=== PATIENT | male | born 1960 | race Caucasian/White ===

== ENCOUNTER 2017-02-23 08:49 | Outpatient (CLI) | payer OTHER | END 2017-02-23 08:50 | disposition critical access hospital (66) | LOC: EMS 08:49 | PROVIDERS: ATTEND Surgery | DX: R41.82 Altered mental status, unspecified (principal); R53.1 Weakness; W01.0XXA Fall on same level from slipping, tripping and stumbling without subsequent striking against object, initial encounter; Y92.039 Unspecified place in apartment as the place of occurrence of the external cause | CPT/HCPCS: A0425; A0427 ==

== ENCOUNTER 2017-02-23 09:05 | Emergency (ER) | payer OTHER ==
--- NOTE | 2017-02-23 09:54 | CT Preliminary Report ---
Exam: CT Head W/O Stroke Protocol IMPRESSION: 1. No bleeding or mass effect, or shift. 2. Prominent left sided ventricles, sulci and cisterns, probably age-related. No focal areas of encep halomalacia. [facility] The call report notification system was initiated by Dr. Kavin Phillips at 09:45 hrs on 02/23/17. The above findings were discussed with Dr. Carrington Card by Dr. Kavin Phillips at 09:52 hrs on 02/23/17. SITE ID: [id number]
[2017-02-23] MEDS ORDERED: SODIUM CHLORIDE 0.9% 1,000 ML IV ONE (09:57)
[2017-02-23] MEDS ORDERED: diltiaZEM INJ 5 MG/ML VIAL IVP STA (09:57)
[2017-02-23 10:02] LABS: INR 1.1 (0.8-1.2); PT - PROTHROMBIN TIME 12.8 secs (9.9-12.6)
--- NOTE | 2017-02-23 10:03 | CT Preliminary Report ---
Exam: CT Cervical Spine W/O IMPRESSION: 1. No acute fracture or dislocation. 2. Multilevel degenerative changes as described. 3. Mild multilevel grade 1 spondylolisthesis, likely degenerative. [facility] SITE ID: [id number]
[2017-02-23] MEDS ORDERED: diltiaZEM INJ 5 MG/ML VIAL ONE (10:06)
--- NOTE | 2017-02-23 10:06 | CT Report ---
EXAM: CT CERVICAL SPINE WITHOUT CONTRAST DATE: 02/23/2017 09:45 AM HISTORY: Syncope. Injury from fall. COMPARISONS: None. TECHNIQUE: Thin-section axial images were acquired of the cervical spine without contrast. Post-proce ssing: Coronal and sagittal reformats. Other: None. In accordance with CT protocol optimization, one or more of the following dose reduction techniques w ere utilized for this exam: automated exposure control, adjustment of mA and/or KV based on patient s ize, or use of iterative reconstructive technique. FINDINGS: Alignment: Mild levoscoliosis. Mild grade 1 anterolisthesis C2 on C3, C4 and C5, and minor grade 1 re trolisthesis C6 on C7. Bones: No acute fracture or bone destructive process. Intact odontoid process and posterior elements. Interspace Levels/Facets: Multilevel disk height loss with prominent anterior osteophytes, most sever e and advanced at C6-C7, less so C4-C5 and C5-C6. Multilevel moderate facet arthrosis, especially basia ateral C2-C3 and C3-C4. Bilateral uncinate hypertrophy with resultant foraminal narrowing, moderate t o severe at C6-C7, left greater than right. Other: No paravertebral soft tissue swelling. No apical pneumothorax. Biapical pleural parenchymal sc arring. IMPRESSION: 1. No acute fracture or dislocation. 2. Multilevel degenerative changes as described. 3. Mild multilevel grade 1 spondylolisthesis, likely degenerative. [facility] Referring Provider Line: [phone] SITE ID: [id number]
--- NOTE | 2017-02-23 10:06 | CT Report ---
EXAM: CT HEAD EXAM DATE: 02/23/2017 09:39 AM. CLINICAL HISTORY: Syncope; fall. Stroke protocol. COMPARISON: None. TECHNIQUE: Multiaxial CT images were obtained from the foramen magnum to the vertex. IV contrast: Non e. Reformats: Coronal. In accordance with CT protocol optimization, one or more of the following dose reduction techniques w ere utilized for this exam: automated exposure control, adjustment of mA and/or KV based on patient s ize, or use of iterative reconstructive technique. FINDINGS: Parenchyma: No intraparenchymal hemorrhage. No evidence of mass, midline shift, or CT findings of acu te infarction. Christensen-white differentiation is distinct. Extraaxial Spaces: Prominent ventricles, sulci and cisterns, more on the left. No encephalomalacia. Ventricles: Left ventricle and right ventricle are normal size, slightly larger on the left. Sinuses: Imaged paranasal sinuses, orbits, and mastoids show no significant abnormality. Bones: No evidence of fracture or calvarial defect. Other: Multifocal chronic microangiopathic white matter changes are evident. IMPRESSION: 1. No bleeding or mass effect, no shift. 2. Prominent left-sided ventricles, sulci and cisterns, probably age-related. No focal areas of encep halomalacia. [facility] The call report notification system was initiated by Dr. Kavin Phillips at 09:45 hrs on 02/23/2017. The above findings were discussed with Dr. Carrington Card by Dr. Kavin Phillips at 09:52 hrs on 02/23/2017 . Referring Provider Line: [phone] SITE ID: [id number]
[2017-02-23 10:09] LABS: PARTIAL THROMBOPLASTIN TIME 24.2 secs (24.9-33.3)
[2017-02-23 10:18] LABS: BASOPHILS % (AUTO) 1.2 %; EOSINOPHILS % (AUTO) 0.1 %; HCT - HEMATOCRIT 20.4 % (42.0-52.0); LYMPHOCYTES % (AUTO) 6.3 %; MEAN CORPUSCULAR HEMOGLOBIN 14.9 pg (27.0-31.0); MEAN PLATELET VOLUME 8.4 fL (7.4-11.4); MONOCYTES % (AUTO) 5.5 %; NEUTROPHILS % (AUTO) 86.9 %; RED CELL DISTRIBUTION WIDTH 22.2 % (12.0-15.0); UNCORRECTED WHITE BLOOD COUNT 31.5 x10^3/uL; WHITE BLOOD COUNT 31.5 x10^3/uL (4.8-10.8)
[2017-02-23 10:20] LABS: HGB - HEMOGLOBIN 5.5 g/dL (14.0-18.0)
[2017-02-23 10:22] LABS: BAND NEUTROPHILS % (MANUAL) 0 %
[2017-02-23 10:27] LABS: BASOPHILS % (MANUAL) 1 %; LYMPHOCYTES % (MANUAL) 6 %; NEUTROPHILS % (MANUAL) 85 %; TOTAL CELLS COUNTED 100
[2017-02-23 10:28] LABS: NP AUTO DIFFERENTIAL? YES; NP MAN DIFFERENTIAL? NO; PLATELET ESTIMATE, MANUAL INCREASED (>450,000) (NORMAL); PLATELET MORPHOLOGY NORMAL APPEARANCE (NORMAL)
[2017-02-23 10:30] LABS: SLIDE SENT FOR PATH REVIEW? Indicated
[2017-02-23 10:31] LABS: CBC SPECIMEN NUMBER 757578; PATHOLOGIST REVIEW ORDER PATH SLIDE REVIEW
[2017-02-23 10:33] LABS: ALBUMIN/GLOBULIN RATIO 0.5 (1.0-2.2); BILIRUBIN,TOTAL 0.5 mg/dL (0.2-1.0); BUN - BLOOD UREA NITROGEN 13 mg/dL (6-20); CALCIUM 9.4 mg/dL (8.5-10.3); CARBON DIOXIDE - CO2 16 mmol/L (21-32); CHLORIDE 100 mmol/L (101-111); CREATININE 1.2 mg/dL (0.6-1.2); GFR - MDRD 62 (>89); GLUCOSE 232 mg/dL (70-100); LIPASE 27 U/L (22-51); POTASSIUM 4.4 mmol/L (3.5-5.0); SODIUM 138 mmol/L (135-145); TOTAL PROTEIN 8.2 g/dL (6.7-8.2)
[2017-02-23] MEDS ORDERED: MORPHINE 2 MG/ML SYRINGE IVP STA (10:38)
--- NOTE | 2017-02-23 10:56 | XRAY Preliminary Report ---
Exam: XR Chest 1 View IMPRESSION: 1. Technically limited exam due to positioning. 2. Nonspecific irregular opacities lower left lung and possible left basilar bulla. Apparent left inf rahilar retrocardiac opacity. Recommend radiographic follow-up versus chest CT. 2. Normal heart size without failure. [facility] SITE ID: [id number]
--- NOTE | 2017-02-23 10:59 | XRAY Report ---
EXAM: CHEST RADIOGRAPHY EXAM DATE: 02/23/2017 10:40 AM. CLINICAL HISTORY: Syncope, tachycardia. COMPARISON: 07/29/2006. TECHNIQUE: 1 view (2 images). FINDINGS: Lungs/Pleura: Apparent opacification medial upper left retrocardiac area below the hilum. Irregular o pacities lower left lung potentially adjacent to a bulla. Mild blunting left costophrenic sulcus. Pos sible small left apical calcifications. No pneumothorax. Clear right lung. Mediastinum: Rotated. No cardiomegaly. Other: No acute fracture identified. Healed right posterolateral 10th rib fracture deformity. IMPRESSION: 1. Technically limited exam due to positioning. 2. Nonspecific irregular opacities lower left lung and possible left basilar bulla. Apparent left inf rahilar retrocardiac opacity. Recommend radiographic follow-up versus chest CT. 2. Normal heart size without failure. [facility] Referring Provider Line: [phone] SITE ID: [id number]
--- NOTE | 2017-02-23 11:07 | ED Physician Documentation ---
History of Present Illness - Stated complaint Stated Complaint: AMS, FALL - Chief complaint Chief Complaint: Neuro - History obtained from History obtained from: Patient, EMS - Treatment prior to arrival Treatment prior to arrival: NS IV. - Additonal information Additional information: The patient is a 57-year-old alcoholic male who arrives via ambulance after falling at home this morning. He lives by himself, and a neighbor heard him calling for help. He initially did not converse with medics, but is conversant upon arrival to the emergency department. He reports dark bloody stools for the past several days. Medics state there was emesis at the site, although the patient denies vomiting. He denies abdominal pain, fever, or shortness of breath. He denies history of similar symptoms in the past. He denies any abdominal surgery. He reports history of skin cancer, for which he has undergone radiation therapy on the left side of his neck. His neighbor states that he has been drinking more than usual lately and took sleeping medication last night in addition to alcohol. He has not been leaving his home, and his neighbor has been going to the store for him. Review of Systems Constitutional: reports: Fatigue. denies: Fever Ears: denies: Tinnitus/ringing Nose: denies: Congestion Throat: denies: Sore throat Cardiac: denies: Chest pain / pressure Respiratory: denies: Dyspnea, Cough GI: reports: Nausea, Bloody / black stool. denies: Abdominal Pain : denies: Dysuria Musculoskeletal: reports: Extremity pain (left elbow pain). denies: Extremity swelling Neurologic: reports: Generalized weakness. denies: Focal weakness, Numbness, Seizure, Headache PD PAST MEDICAL HISTORY - Past Medical History Cardiovascular: Hypertension Respiratory: COPD Endocrine/Autoimmune: None Derm: Other (Skin Cancer, s/p radiation) - Present Medications Home Medications: Ambulatory Orders Medication Instructions Recorded Confirmed No Known Home Medications [No 02/23/17 02/23/17 Known Home Medications] - Allergies Allergies/Adverse Reactions: Allergies Allergy/AdvReac Type Severity Reaction Status Date / Time No Known Drug Allergies Allergy Verified 02/23/17 09:13 - Living Situation Living Situation: reports: Alone - Social History Does the pt smoke?: Yes Smoking Status: Current every day smoker Does the pt drink ETOH?: Yes ETOH Use: Beer PD ED PE NORMAL - Vitals Vital signs reviewed: Yes (Tachycardic) - General General: Other (Emaciated, and drowsy.) - HEENT HEENT: PERRL, EOMI, Other (Dry buccal mucosa; small ecchymosis mid forehead.) - Neck Neck: Supple, no meningeal sign, No adenopathy, No JVD, Other (Large open sore left side of neck.) - Cardiac Cardiac: Other (Rapid rate, regular rhythm.) - Respiratory Respiratory: Clear bilaterally - Abdomen Abdomen: Soft, Non tender - Back Back: No spinal TTP - Derm Derm: No rash - Extremities Extremities: No edema, No calf tenderness / cord, Other (No tenderness to palpation of left elbow.) - Neuro Neuro: Other (Drowsy, but responds to questions. Moves all extremities, without focal motor deficit.) Results - Vitals Vitals: Vital Signs - 24 hr 02/23/17 02/23/17 02/23/17 09:07 10:45 11:00 Temperature Heart Rate 158 H 148 H 152 H Respiratory 26 H 25 H 22 Rate Blood Pressure 198/110 H O2 Saturation 100 100 02/23/17 02/23/17 02/23/17 11:15 11:30 11:45 Temperature Heart Rate 120 H 134 H 122 H Respiratory 20 20 21 Rate Blood Pressure 188/98 H 185/102 H 167/90 H O2 Saturation 100 100 100 02/23/17 02/23/17 02/23/17 11:52 12:00 12:15 Temperature 36.9 C 37.3 C Heart Rate 133 H 123 H 128 H Respiratory 22 21 14 Rate Blood Pressure 167/90 H 178/92 H 197/97 H O2 Saturation 100 02/23/17 12:45 Temperature Heart Rate 113 H Respiratory 19 Rate Blood Pressure 182/107 H O2 Saturation 100 Oxygen O2 Source Nasal cannula - EKG (time done) 09:46 Rate: Rate (enter#) (189) Rhythm: Sinus tachycardia [place]: Normal QRS: LVH Ischemia: ST depression (Probably rate related.) Computer interpretation: Agree with computer - Labs Labs: Laboratory Tests 02/23/17 02/23/17 02/23/17 09:08 09:15 09:53 WBC RBC Hgb Hct MCV MCH MCHC RDW Plt Count MPV Neut # Lymph # [place] # Eos # Baso # Absolute Nucleated RBC Total Counted Band Neuts % (Manual) Nucleated RBC % Neutrophils # (Manual) Lymphocytes # (Manual) Monocytes # (Manual) Basophils # (Manual) Differential Comment Platelet Estimate Platelet Morphology RBC Morph Micro Appear PT 12.8 H INR 1.1 APTT 24.2 L Sodium Potassium Chloride Carbon Dioxide Anion Gap BUN Creatinine Estimated GFR (MDRD) Glucose POC Whole Bld Glucose 255 H Lactic Acid Calcium Total Bilirubin AST ALT Alkaline Phosphatase Troponin I Total Protein Albumin Globulin Albumin/Globulin Ratio Lipase Urine Color Urine Clarity Urine pH Ur Specific [place] Urine Protein Urine Glucose (UA) Urine Ketones Urine Occult Blood Urine Nitrite Urine Bilirubin Urine Urobilinogen Ur Leukocyte Esterase Ur Microscopic Review Urine Culture Comments Urine Opiates Screen Ur Oxycodone Screen Urine Methadone Screen Ur Propoxyphene Screen Ur Barbiturates Screen Ur Tricyclics Screen Ur Phencyclidine Scrn Ur Amphetamine Screen U Methamphetamines Scrn U Benzodiazepines Scrn Urine Cocaine Screen U Cannabinoids Screen Ethyl Alcohol Slides for Path Review Blood Type Blood Type Recheck O POSITIVE Antibody Screen Crossmatch IS Only 02/23/17 02/23/17 02/23/17 09:53 09:54 09:54 WBC 31.5 H RBC 3.70 L Hgb 5.5 L* Hct 20.4 L MCV 55.0 L MCH 14.9 L MCHC 27.0 L RDW 22.2 H Plt Count 755 H MPV 8.4 Neut # Not Reportable Lymph # Not Reportable [place] # Not Reportable Eos # Not Reportable Baso # Not Reportable Absolute Nucleated RBC Not Reportable Total Counted 100 Band Neuts % (Manual) 0 Nucleated RBC % Not Reportable Neutrophils # (Manual) 26.8 H Lymphocytes # (Manual) 1.9 Monocytes # (Manual) 2.5 H Basophils # (Manual) 0.3 H Differential Comment MANUAL DIFFERENTIAL Platelet Estimate INCREASED (>450,000) Platelet Morphology NORMAL APPEARANCE RBC Morph Micro Appear 3+ MICROCYTOSIS PT INR APTT Sodium 138 Potassium 4.4 Chloride 100 L Carbon Dioxide 16 L Anion Gap 22.0 H BUN 13 Creatinine 1.2 Estimated GFR (MDRD) 62 L Glucose 232 H POC Whole Bld Glucose Lactic Acid Calcium 9.4 Total Bilirubin 0.5 AST 29 ALT 11 Alkaline Phosphatase 97 Troponin I < 0.04 Total Protein 8.2 Albumin 2.8 L Globulin 5.4 H Albumin/Globulin Ratio 0.5 L Lipase 27 Urine Color Urine Clarity Urine pH Ur Specific [place] Urine Protein Urine Glucose (UA) Urine Ketones Urine Occult Blood Urine Nitrite Urine Bilirubin Urine Urobilinogen Ur Leukocyte Esterase Ur Microscopic Review Urine Culture Comments Urine Opiates Screen Ur Oxycodone Screen Urine Methadone Screen Ur Propoxyphene Screen Ur Barbiturates Screen Ur Tricyclics Screen Ur Phencyclidine Scrn Ur Amphetamine Screen U Methamphetamines Scrn U Benzodiazepines Scrn Urine Cocaine Screen U Cannabinoids Screen Ethyl Alcohol < 5.0 Slides for Path Review Indicated Blood Type Blood Type Recheck Antibody Screen Crossmatch IS Only 02/23/17 02/23/17 02/23/17 10:08 10:08 11:33 WBC RBC Hgb Hct MCV MCH MCHC RDW Plt Count MPV Neut # Lymph # [place] # Eos # Baso # Absolute Nucleated RBC Total Counted Band Neuts % (Manual) Nucleated RBC % Neutrophils # (Manual) Lymphocytes # (Manual) Monocytes # (Manual) Basophils # (Manual) Differential Comment Platelet Estimate Platelet Morphology RBC Morph Micro Appear PT INR APTT Sodium Potassium Chloride Carbon Dioxide Anion Gap BUN Creatinine Estimated GFR (MDRD) Glucose POC Whole Bld Glucose Lactic Acid 8.4 H* Calcium Total Bilirubin AST ALT Alkaline Phosphatase Troponin I Total Protein Albumin Globulin Albumin/Globulin Ratio Lipase Urine Color YELLOW Urine Clarity CLEAR Urine pH 5.5 Ur Specific [place] >=1.030 H Urine Protein NEGATIVE Urine Glucose (UA) NEGATIVE Urine Ketones NEGATIVE Urine Occult Blood NEGATIVE Urine Nitrite NEGATIVE Urine Bilirubin NEGATIVE Urine Urobilinogen 0.2 (NORMAL) Ur Leukocyte Esterase NEGATIVE Ur Microscopic Review NOT INDICATED Urine Culture Comments NOT INDICATED Urine Opiates Screen NEGATIVE Ur Oxycodone Screen NEGATIVE Urine Methadone Screen NEGATIVE Ur Propoxyphene Screen NEGATIVE Ur Barbiturates Screen NEGATIVE Ur Tricyclics Screen NEGATIVE Ur Phencyclidine Scrn NEGATIVE Ur Amphetamine Screen NEGATIVE U Methamphetamines Scrn NEGATIVE U Benzodiazepines Scrn NEGATIVE Urine Cocaine Screen NEGATIVE U Cannabinoids Screen NEGATIVE Ethyl Alcohol Slides for Path Review Blood Type O POSITIVE Blood Type Recheck Antibody Screen NEGATIVE Crossmatch IS Only See Detail - Rads (name of study) Head CT w/o Radiology: Prelim report reviewed, EMP read contemporaneously, See rad report ( No bleeding or mass-effect, or shift. Prominent left-sided ventricles, sulci and cisterns, probably age-related. No focal areas of encephalomalacia.) Cervical spine CT Radiology: Prelim report reviewed, EMP read contemporaneously, See rad report ( 1. No acute fracture or dislocation. 2. Multilevel degenerative changes as described. 3. Mild multilevel grade 1 spondylolisthesis, likely degenerative.) Left elbow Radiology: Prelim report reviewed, EMP read contemporaneously, See rad report ( Normal elbow radiography.) PD MEDICAL DECISION MAKING - ED course Complexity details: reviewed results, re-evaluated patient, considered differential, d/w patient, d/w financial services education consultant ED course: The patient's presentation is significant for gastrointestinal hemorrhage with profound anemia, with apparent syncopal episode this morning. He has had no further GI bleeding while in the emergency department. His hemoglobin is 5.5, and he has metabolic acidosis with a lactate of 8.4. His white count is markedly elevated at 31,500. Head CT without contrast reveals no acute intracranial hemorrhage, and CT of his C-spine reveals no acute bony abnormality. His electrocardiogram reveals sinus tachycardia, without ischemic abnormality, and his troponin level is normal. Treatment in the emergency department included administration of normal saline 2 L IV, morphine 2 mg IV, Ofirmev 1 g IV, and transfusion of 2 units packed red blood cells. Ceftriaxone 1 g and vancomycin 1 g were administered IV after blood cultures were obtained. The patient's tachycardia improved as the infusion progressed. His mental status also improved. I discussed his condition with the hospitalist, Dr. Tong , who recommends transfer to an acute care facility. I discussed his condition with Dr. Avila at [facility], and he will accept the patient in transfer. He is being transferred by ALS ambulance. Transfer forms were completed. - Critical Care Time(min): 60 Time Includes: Direct patient care, Review records, Reassess patient, Document care, Coordinate care Data interpretation: Labs, CXR Procedures excluded from critical care time: EKG Departure - Departure Disposition: 02 Transfer Acute Care Hosp Clinical Impression: Profound anemia, Alcohol abuse, Skin cancer, Hyperglycemia, Metabolic acidosis GI hemorrhage Qualifiers: GI bleed type/associated pathology: unspecified gastrointestinal hemorrhage type Qualified Code(s): K92.2 - Gastrointestinal hemorrhage, unspecified Condition: Serious Discharge Date/Time: 02/23/17 13:12
[2017-02-23] MEDS ORDERED: MORPHINE 2 MG/ML SYRINGE ONE (11:40)
[2017-02-23] MEDS ORDERED: ACETAMINOPHEN 1,000 MG/100 ML 100 ML IV ONE ×2 (11:41→12:29)
[2017-02-23 11:46] LABS: BILIRUBIN,URINE NEGATIVE (NEGATIVE); PH,URINE 5.5 PH (5.0-7.5)
[2017-02-23 11:48] LABS: UA CHARGE (STRIP ONLY) YES; UR CULTURE IF IND NOT INDICATED
--- NOTE | 2017-02-23 12:09 | XRAY Preliminary Report ---
Exam: XR Elbow 3 View LT IMPRESSION: Normal elbow radiography. [facility] SITE ID: [id number]
--- NOTE | 2017-02-23 12:43 | XRAY Report ---
EXAM: LEFT ELBOW RADIOGRAPHY EXAM DATE: 02/23/2017 11:42 AM. CLINICAL HISTORY: Left elbow pain after falling. COMPARISON: None. TECHNIQUE: 3 views. FINDINGS: Bones: Normal. No fractures or bone lesions. Joints: Normal. No effusion. No subluxation. Soft Tissues: Normal. No soft tissue swelling. IMPRESSION: Normal elbow radiography. [facility] Referring Provider Line: [phone] SITE ID: [id number]
[2017-02-23] MEDS ORDERED: cefTRIAXone 1 GM in SODIUM CHLORIDE 0.9% MINIBAG 100 ML IV STA (13:01)
[2017-02-23] MEDS ORDERED: VANCOMYCIN INJ 1 GM in SODIUM CHLORIDE 0.9% 250 ML IV STA (13:02)
[2017-02-23] MEDS ORDERED: VANCOMYCIN 1 GM VIAL ONE (13:08)
[2017-02-23] MEDS ORDERED: cefTRIAXone 1 GM VIAL ONE (13:09)
[2017-02-23 13:45] VITALS: BP 182/107
[2017-02-26 10:35] LABS: PATH REVIEW COMPLETED PATH REVIEW COMPLETE
== END 2017-02-23 13:12 | disposition short-term general hospital (02) ==
LOC: EDUNIT# → ED 09:05
DX: D64.89 Other specified anemias (principal); K92.1 Melena; C44.90 Unspecified malignant neoplasm of skin, unspecified; R73.9 Hyperglycemia, unspecified; E87.2 Acidosis; R41.82 Altered mental status, unspecified; W18.39XA Other fall on same level, initial encounter; Y92.019 Unspecified place in single-family (private) house as the place of occurrence of the external cause; I10 Essential (primary) hypertension; J44.9 Chronic obstructive pulmonary disease, unspecified; D72.829 Elevated white blood cell count, unspecified; R00.0 Tachycardia, unspecified; F17.200 Nicotine dependence, unspecified, uncomplicated
CPT/HCPCS: 36415; 36430; 51702; 70450; 71010; 72125; 73080; 80053; 80306; 80320; 81003; 83605; 83690; 84484; 85025; 85610; 85730; 86850; 86900; 86901; 86920; 93005; 96361; 96365; 96367; 96375; 99285; 99291; J0131; J3370; P9016; 81001; 87086

== ENCOUNTER 2017-02-23 13:13 | Outpatient (CLI) | payer OTHER | END 2017-02-23 13:14 | disposition short-term general hospital (02) | LOC: EMS 13:13 | PROVIDERS: ATTEND Surgery | DX: K92.2 Gastrointestinal hemorrhage, unspecified (principal); D64.9 Anemia, unspecified; R53.1 Weakness | CPT/HCPCS: A0425; A0426 ==

== ENCOUNTER 2017-07-21 08:00 | Outpatient (CLI) | payer OTHER | END 2017-07-21 23:59 | disposition home or self-care (01) | LOC: LAB.R 08:00 | PROVIDERS: ATTEND Internal Medicine | DX: S71.001A Unspecified open wound, right hip, initial encounter (principal) | CPT/HCPCS: 87070; 87205 ==

== ENCOUNTER 2017-08-30 08:00 | Outpatient (CLI) | payer OTHER | END 2017-08-30 08:01 | LOC: LAB.R 08:00 | PROVIDERS: ATTEND Internal Medicine | DX: A49.02 Methicillin resistant Staphylococcus aureus infection, unspecified site (principal) | CPT/HCPCS: 87070; 87205 ==

== ENCOUNTER 2017-09-13 08:00 | Outpatient (CLI) | payer OTHER | END 2017-09-13 08:01 | disposition home or self-care (01) | LOC: LAB.R 08:00 | DX: A49.02 Methicillin resistant Staphylococcus aureus infection, unspecified site (principal) | CPT/HCPCS: 87070; 87205 ==

== ENCOUNTER 2021-06-01 07:45 | Outpatient (CLI) | payer OTHER | END 2021-06-01 07:46 | disposition critical access hospital (66) | LOC: EMS 07:45 | DX: R20.0 Anesthesia of skin (principal); R29.898 Other symptoms and signs involving the musculoskeletal system; R47.81 Slurred speech | CPT/HCPCS: A0425; A0427 ==

== ENCOUNTER 2021-06-01 08:04 | Inpatient (IN) | payer OTHER, MEDICAID ==
--- NOTE | 2021-06-01 08:14 | ED Physician Documentation ---
PD HPI [facility]OCAL [facility]URO - Stated complaint Stated Complaint: L SIDE NUMB/WEAK - History obtained from History obtained from: Patient, EMS - Additional information Additional information: 61 yo male with hx alcohol/tobacco abuse in remission. 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 No hx CVA/TIA. Noted new L side weakness/numbness starting 6pm last night (14 hrs ago). Fell 3 times at home since then without injury. No headache. Review of Systems Ten Systems: 10 systems reviewed and negative Constitutional: reports: Reviewed and negative Throat: reports: Reviewed and negative Cardiac: reports: Reviewed and negative Respiratory: reports: Reviewed and negative PD PAST MEDICAL HISTORY - Past Medical History Cardiovascular: Hypertension Respiratory: COPD Endocrine/Autoimmune: None Derm: Other (Skin Cancer, s/p radiation) - Past Surgical History Past Surgical History: Yes Derm: Skin cancer surgery - Present Medications Home Medications: Ambulatory Orders Medication Instructions Recorded Confirmed No Known Home Medications 02/23/17 02/23/17 - Allergies Allergies/Adverse Reactions: Allergies Allergy/AdvReac Type Severity Reaction Status Date / Time No Known Drug Allergies Allergy Verified 06/01/21 08:18 - Social History Does the pt smoke?: Yes Smoking Status: Current every day smoker Does the pt drink ETOH?: Yes Does the pt have substance abuse?: No - Family History Family history: reports: Non contributory - Immunizations Immunizations are current?: No PD ED PE NORMAL - Vitals Vital signs reviewed: Yes - General General: Alert and oriented X 3, No acute distress - HEENT HEENT: PERRL, EOMI, Other (decreased muscle mass about L neck and shoulder.) - Neck Neck: Supple, no meningeal sign, No bony TTP - Cardiac Cardiac: RRR, No murmur - Respiratory Respiratory: No respiratory distress, Clear bilaterally - Abdomen Abdomen: Normal bowel sounds, Non tender - Back Back: No CVA TTP, No spinal TTP - Extremities Extremities: No deformity, No tenderness to palpate, Normal ROM s pain, No edema, No calf tenderness / cord - Neuro Neuro: Alert and oriented X 3 Eye Opening: Spontaneous Motor: Obeys Commands Verbal: Oriented GCS Score: 15 NIHSS - Time Time: 08:05 - Level of Consciousness Level of consciousness: (0) Alert, Keenly responsive LOC Questions: (0) Answers both Q's correct LOC Commands: (0) Performs both correctly - Gaze Best Gaze: (0) Normal - Visual Visual: (0) No loss - Facial Palsy Facial Palsy: (0) Normal, symmetrical movement - Motor Arms (both separate) Motor Arm (right): (0) No drift Motor Arm (left): (1) Drift - Motor Legs (both separate) Motor Leg (right): (0) No drift Motor Leg (left): (1) Drift - Limb Ataxia Limb Ataxia: (0) Absent - Sensory Sensory: (0) Normal - Best Language Best Language: (0) No aphasia - Dysarthria Dysarthria: (0) Normal - Extinction and Inattention (formally neg Extinction and inattention: (0) No abnormality - Total Score/Results Total Score/Result: 2 Results - Vitals Vitals: Vital Signs - 24 hr 06/01/21 06/01/21 08:15 10:18 Temperature 36.8 C Heart Rate 90 91 Respiratory 20 21 Rate Blood Pressure 194/82 H 186/92 H O2 Saturation 99 100 Oxygen O2 Source Room air - EKG (time done) 1030 Rate: Rate (enter#) (88) Rhythm: NSR [place]: Normal Intervals: Normal VA QRS: LVH Ischemia: Q waves (anterior). No: ST elevation c/w ischemia, ST depression - Labs Labs: Laboratory Tests 06/01/21 06/01/21 06/01/21 08:17 08:17 08:17 WBC 10.9 H RBC 4.34 L Hgb 12.7 L Hct 38.7 L MCV 89.2 MCH 29.3 MCHC 32.8 RDW 14.1 Plt Count 358 MPV 9.9 Neut # (Auto) 8.4 H Lymph # (Auto) 1.6 [place] # (Auto) 0.6 Eos # (Auto) 0.3 Baso # (Auto) 0.1 Absolute Nucleated RBC 0.00 Nucleated RBC % 0.0 PT 11.5 INR 1.0 Sodium 140 Potassium 4.3 Chloride 103 Carbon Dioxide 25 Anion Gap 12.0 BUN 22 H Creatinine 1.0 Estimated GFR (MDRD) 75 L Glucose 104 H Calcium 9.4 Magnesium 1.9 Nasal Adenovirus (PCR) Nasal B. parapertussis DNA (PCR) Nasal Coronavir 229E PCR Nasal Coronavir HKU1 PCR Nasal Coronavir NL63 PCR Nasal Coronavir OC43 PCR Nasal Enterovir/Rhinovir PCR Nasal Influenza B PCR Nasal Influenza A PCR Nasal Parainfluen 1 PCR Nasal Parainfluen 2 PCR Nasal Parainfluen 3 PCR Nasal Parainfluen 4 PCR Nasal RSV (PCR) Nasal B.pertussis DNA PCR Nasal C.pneumoniae (PCR) Che[place] Human Metapneumo PCR Nasal M.pneumoniae (PCR) Nasal SARS-CoV-2 (PCR) 06/01/21 10:24 WBC RBC Hgb Hct MCV MCH MCHC RDW Plt Count MPV Neut # (Auto) Lymph # (Auto) [place] # (Auto) Eos # (Auto) Baso # (Auto) Absolute Nucleated RBC Nucleated RBC % PT INR Sodium Potassium Chloride Carbon Dioxide Anion Gap BUN Creatinine Estimated GFR (MDRD) Glucose Calcium Magnesium Nasal Adenovirus (PCR) NOT DETECTED Nasal B. parapertussis DNA (PCR) NOT DETECTED Nasal Coronavir 229E PCR NOT DETECTED Nasal Coronavir HKU1 PCR NOT DETECTED Nasal Coronavir NL63 PCR NOT DETECTED Nasal Coronavir OC43 PCR NOT DETECTED Nasal Enterovir/Rhinovir PCR NOT DETECTED Nasal Influenza B PCR NOT DETECTED Nasal Influenza A PCR NOT DETECTED Nasal Parainfluen 1 PCR NOT DETECTED Nasal Parainfluen 2 PCR NOT DETECTED Nasal Parainfluen 3 PCR NOT DETECTED Nasal Parainfluen 4 PCR NOT DETECTED Nasal RSV (PCR) NOT DETECTED Nasal B.pertussis DNA PCR NOT DETECTED Nasal C.pneumoniae (PCR) NOT DETECTED [place] Human Metapneumo PCR NOT DETECTED Nasal M.pneumoniae (PCR) NOT DETECTED Nasal SARS-CoV-2 (PCR) NOT DETECTED PD MEDICAL DECISION MAKING - ED course ED course: 61-year-old gentleman with stroke symptoms of the left side starting last night at 6 PM. He is well outside of the tPA window. He went over to CT for CT angiography of the head and neck which the results follow. After that I discussed the case with our telestroke neurologist, Dr. Wilks. He did not feel that the patient needed urgent transfer for vascular evaluation given that probably everything here is chronic. He was administered aspirin and an MRI of the head was ordered. That said when I initially spoke with the telestroke neurologist, I was utilizing the information that was verbally passed down from the radiologist which was that was only the left carotid that was occluded. When I reviewed the final report showing that it was the left carotid but also complete occlusion of both vertebral arteries I repaged the telestroke neurologist. I spoke with Dr. Wilks again and relayed the complete radiology read of the angiography. He did not think this change the plan too much, in fact he mentioned that the fact that he had multiple intracranial vasculopathy was a stronger suggestion that all of them were chronic. That said he did recommend getting an MRI if able and this is ordered. He was administered aspirin and an MRI was done showing tiny acute infarcts in the right thalamus and posterior limb internal capsule. These would not be caused by an acute occlusion of any of the arteries noted on the CT angiography. CT angiogram of the neck: Postsurgical and postradiation changes in the neck and medial lung apices. Standard three-vessel aortic arch anatomy. Mild atherosclerotic plaque and calcification at the origin of the brachiocephalic and the left subclavian. Right subclavian artery is widely patent. Complete occlusion of the proximal right vertebral artery with reconstitution in the mid and distal segments. Complete occlusion of the proximal left vertebral artery with reconstitution in the mid and distal segments. Widely patent right common carotid artery. Moderate narrowing of the carotid bifurcation and right ICA origin. Multifocal mild scattered atherosclerotic narrowing in the remaining extracranial ICA. 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 CT angiogram of the head: The V4 segments and basilar artery are widely patent. Cerebellar arteries and posterior cerebral arteries appear normal. Complete occlusion of the left internal carotid artery to the level of the carotid terminus. The left anterior cerebral artery and middle cerebral artery are supplied via collateral flow primarily across the anterior communicating artery. Bilateral posterior to indicating arteries are present, small in caliber on the left. 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 Otherwise normal appearance of the anterior and middle cerebral arteries. CT of the head: Global cerebral volume loss and chronic microvascular ischemic changes, advanced for age. Remote right frontal and left frontal infarcts with encephalomalacia and gliosis. No acute loss of alvarado-white matter differentiation to suggest an acute infarct. No acute intracranial hemorrhage, mass effect or midline shift. IMPRESSION: Complete occlusion of the left carotid system from the level of the aortic arch to the carotid terminus. Complete occlusion of the bilateral vertebral arteries proximately, with reconstitution in the mid and distal segments. Moderate right carotid bifurcation narrowing. Mild narrowing of the right extr acranial ICA. Vascular surgery consult recommended. The estimate of stenosis included in the report of the imaging study was calculated using the NASCET method. Departure - Departure Disposition: 64 [facility] DC/Xfer Clinical Impression: Cerebrovascular accident (CVA) Condition: Good
[2021-06-01] MEDS ORDERED: iohexoL-300 100 ML VIAL ONE (08:21)
[2021-06-01 08:22] LABS: BASOPHILS # (AUTO) 0.1 10^3/uL (0.0-0.1); BASOPHILS % (AUTO) 0.9 %; EOSINOPHILS # (AUTO) 0.3 10^3/uL (0.0-0.7); EOSINOPHILS % (AUTO) 2.6 %; HCT - HEMATOCRIT 38.7 % (42.0-52.0); HGB - HEMOGLOBIN 12.7 g/dL (14.0-18.0); LYMPHOCYTES # (AUTO) 1.6 10^3/uL (1.5-3.5); LYMPHOCYTES % (AUTO) 14.6 %; MEAN CORPUSCULAR HEMOGLOBIN 29.3 pg (27.0-31.0); MEAN CORPUSCULAR HGB CONC 32.8 g/dL (32.0-36.0); MEAN CORPUSCULAR VOLUME 89.2 fL (80.0-94.0); MEAN PLATELET VOLUME 9.9 fL (7.4-11.4); MONOCYTES # (AUTO) 0.6 10^3/uL (0.0-1.0); MONOCYTES % (AUTO) 5.2 %; NEUTROPHILS # (AUTO) 8.4 10^3/uL (1.5-6.6); NEUTROPHILS % (AUTO) 76.4 %; PLT - PLATELET COUNT 358 10^3/uL (130-450); RED BLOOD COUNT 4.34 10^6/uL (4.70-6.10); RED CELL DISTRIBUTION WIDTH 14.1 % (12.0-15.0); WHITE BLOOD COUNT 10.9 x10^3/uL (4.8-10.8)
[2021-06-01 08:29] LABS: PT - PROTHROMBIN TIME 11.5 secs (9.9-12.6)
[2021-06-01 08:31] LABS: CALCIUM 9.4 mg/dL (8.5-10.3); MAGNESIUM 1.9 mg/dL (1.7-2.8); POTASSIUM 4.3 mmol/L (3.5-5.0)
[2021-06-01] MEDS ORDERED: iohexoL-300 100 ML VIAL IVP ONE (09:44)
[2021-06-01] MEDS ORDERED: ASPIRIN CHEW 81 MG TABLET PO STA (09:58)
--- NOTE | 2021-06-01 10:20 | CT Report ---
PROCEDURE: ANGIO NECK W INDICATIONS: stroke sx, L side deficits CONTRAST: IV CONTRAST: Optiray 320 ml: 80 PO CONTRAST: *NO PO CONTRAST TECHNIQUE: After the administration of intravenous contrast, 1.5 mm axial sections acquired from the aortic arch to the [place] of [place]. Coronal 3-D maximum intensity projection (MIP) and/or volume rendering ref ormats were then performed. For radiation dose reduction, the following was used: automated exposur e control, adjustment of mA and/or kV according to patient size. COMPARISON: None. FINDINGS: CT angiogram of the neck: Postsurgical and postradiation changes in the neck and medial lung apices. Standard three-vessel aortic arch anatomy. Mild atherosclerotic plaque and calcification at the origin of the brachiocephalic and the left subcl markel. Right subclavian artery is widely patent. Complete occlusion of the proximal right vertebral artery with reconstitution in the mid and distal s egments. Complete occlusion of the proximal left vertebral artery with reconstitution in the mid and distal se gments. Widely patent right common carotid artery. Moderate narrowing of the carotid bifurcation and right IC A origin. Multifocal mild scattered atherosclerotic narrowing in the remaining extracranial ICA. 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 CT angiogram of the head: The V4 segments and basilar artery are widely patent. Cerebellar arteries and posterior cerebral arteries appear normal. Complete occlusion of the left internal carotid artery to the level of the carotid terminus. The left anterior cerebral artery and middle cerebral artery are supplied via collateral flow primari ly across the anterior communicating artery. Bilateral posterior to indicating arteries are present, small in caliber on the left. 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 Otherwise normal appearance of the anterior and middle cerebral arteries. CT of the head: Global cerebral volume loss and chronic microvascular ischemic changes, advanced for age. Remote right frontal and left frontal infarcts with encephalomalacia and gliosis. No acute loss of alvardao-white matter differentiation to suggest an acute infarct. No acute intracranial hemorrhage, mass effect or midline shift. IMPRESSION: Complete occlusion of the left carotid system from the level of the aortic arch to the carotid termin us. Complete occlusion of the bilateral vertebral arteries proximately, with reconstitution in the mid an d distal segments. Moderate right carotid bifurcation narrowing. Mild narrowing of the right extracranial ICA. Vascular surgery consult recommended. The estimate of stenosis included in the report of the imaging study was calculated using the NASCET method. CLINICAL RECOMMENDATION STATEMENTS: In patients <35 years with an ITN detected on CT, MRI, or extrathyroidal ultrasound, the Committee re commends further evaluation with dedicated thyroid ultrasound if the nodule is "e1 cm and has no susp icious imaging features, and if the patient has normal life expectancy. In patients "e35 years with an ITN detected on CT, MRI, or extrathyroidal ultrasound, the Committee r ecommends further evaluation with dedicated thyroid ultrasound if the nodule is "e1.5 cm and has no s uspicious imaging features, and if the patient has normal life expectancy. (ACR, 2014) Reviewed by: Edgar Morales MD on 06/01/2021 9:19 AM [facility] Approved by: Edgar Morales MD on 06/01/2021 9:19 AM [facility] Station ID: [id number]
--- NOTE | 2021-06-01 10:21 | CT Report ---
PROCEDURE: ANGIO HEAD W/WO INDICATIONS: stroke sx, L side deficits CONTRAST: IV CONTRAST: Optiray 320 ml: 80 PO CONTRAST: *NO PO CONTRAST TECHNIQUE: Precontrast 4.5 mm thick angled axial sections acquired from the foramen magnum to the vertex. Afte r the administration of intravenous contrast, 1 mm thick sections acquired through the [place] of [place] is. Postcontrast 4.5 mm thick sections then re-acquired from the foramen magnum to the vertex. 3-di mensional bnotpbk-buoufpsiq-rtbzxqrdks (MIP) and/or volume rendering reformats were acquired of the c entral intracranial vasculature. For radiation dose reduction, the following was used: automated ex posure control, adjustment of mA and/or kV according to patient size. COMPARISON: 02/23/[address] FINDINGS: CT angiogram of the neck: Postsurgical and postradiation changes in the neck and medial lung apices. Standard three-vessel aortic arch anatomy. Mild atherosclerotic plaque and calcification at the origin of the brachiocephalic and the left subcl markel. Right subclavian artery is widely patent. Complete occlusion of the proximal right vertebral artery with reconstitution in the mid and distal s egments. Complete occlusion of the proximal left vertebral artery with reconstitution in the mid and distal se gments. Widely patent right common carotid artery. Moderate narrowing of the carotid bifurcation and right IC A origin. Multifocal mild scattered atherosclerotic narrowing in the remaining extracranial ICA. 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 CT angiogram of the head: The V4 segments and basilar artery are widely patent. Cerebellar arteries and posterior cerebral arteries appear normal. Complete occlusion of the left internal carotid artery to the level of the carotid terminus. The left anterior cerebral artery and middle cerebral artery are supplied via collateral flow primari ly across the anterior communicating artery. Bilateral posterior to indicating arteries are present, small in caliber on the left. 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 Otherwise normal appearance of the anterior and middle cerebral arteries. CT of the head: Global cerebral volume loss and chronic microvascular ischemic changes, advanced for age. Remote right frontal and left frontal infarcts with encephalomalacia and gliosis. No acute loss of alvarado-white matter differentiation to suggest an acute infarct. No acute intracranial hemorrhage, mass effect or midline shift. IMPRESSION: Complete occlusion of the left carotid system from the level of the aortic arch to the carotid termin us. Complete occlusion of the bilateral vertebral arteries proximately, with reconstitution in the mid an d distal segments. Moderate right carotid bifurcation narrowing. Mild narrowing of the right extracranial ICA. Vascular surgery consult recommended. The estimate of stenosis included in the report of the imaging study was calculated using the NASCET method. CLINICAL RECOMMENDATION STATEMENTS: In patients <35 years with an ITN detected on CT, MRI, or extrathyroidal ultrasound, the Committee re commends further evaluation with dedicated thyroid ultrasound if the nodule is "e1 cm and has no susp icious imaging features, and if the patient has normal life expectancy. In patients "e35 years with an ITN detected on CT, MRI, or extrathyroidal ultrasound, the Committee r ecommends further evaluation with dedicated thyroid ultrasound if the nodule is "e1.5 cm and has no s uspicious imaging features, and if the patient has normal life expectancy. (ACR, 2014) Reviewed by: Edgar Morales MD on 06/01/2021 9:19 AM [facility] Approved by: Edgar Morales MD on 06/01/2021 9:19 AM [facility] Station ID: [id number]
[2021-06-01 11:16] LABS: B. PARAPERTUSSIS- RESP PCR PAN NOT DETECTED; B. PERTUSSIS- RESP PCR PANEL NOT DETECTED; C. PNEUMONIAE- RESP PCR PANEL NOT DETECTED; CORONAVIRUS 229E-RESP PCR NOT DETECTED; CORONAVIRUS HKU1-RESP PCR NOT DETECTED; CORONAVIRUS NL63-RESP PCR NOT DETECTED; CORONAVIRUS OC43-RESP PCR NOT DETECTED; HUMAN METAPNEUMOVIRUS NOT DETECTED; INFLUENZA A- RESP PCR PANEL NOT DETECTED; INFLUENZA B - RESP PCR PANEL NOT DETECTED; M. PNEUMONIAE- RESP PCR PANEL NOT DETECTED; PARAINFLUENZA VIRUS 1 NOT DETECTED; PARAINFLUENZA VIRUS 2 NOT DETECTED; PARAINFLUENZA VIRUS 3 NOT DETECTED; PARAINFLUENZA VIRUS 4 NOT DETECTED; RHINOVIRUS/ENTEROVIRUS NOT DETECTED; RSV- RESP PCR PANEL NOT DETECTED; SARS-CoV-2 -RESP PCR PANEL NOT DETECTED
[2021-06-01] MEDS ORDERED: LORazepam 2 MG/ML VIAL IVP STA (11:16)
--- NOTE | 2021-06-01 13:12 | MRI Report ---
PROCEDURE: Brain W/O INDICATIONS: L side weakness TECHNIQUE: Noncontrast axial T1 spin echo, axial T2 fast spin echo, sagittal and axial FLAIR, coronal T2 fast sp in echo, axial gradient echo, axial diffusion and ADC through the brain. COMPARISON: None. FINDINGS: Motion degraded exam. Global cerebral volume loss and moderate to severe chronic microvascular ischemic change. Cystic ence phalomalacia and gliosis in the anterior right frontal lobe and left daniel radiata related to remote infarcts. Punctate foci of restricted diffusion in the right thalamus and posterior limb internal capsule (seri es 14 images 14, 13, and 12). No additional restricted diffusion. The major intracranial vascular flow related signal voids are maintained. No abnormal intracranial jimenez sceptibility. No mass effect or midline shift. No abnormal extra axial fluid collection. No gross orb ital abnormality. Paranasal sinuses and mastoid air cells are predominantly clear. IMPRESSION: Tiny acute infarcts in the right thalamus and posterior limb internal capsule. Global cerebral volume loss and chronic vascular ischemic changes, both moderate to severe and advanc ed for age. Remote right frontal and left frontal infarcts. Reviewed by: Edgar Morales MD on 06/01/2021 12:[address] [facility] Approved by: Edgar Morales MD on 06/01/2021 12:[address] [facility] Station ID: [id number]
[2021-06-01] MEDS ORDERED: ONDANSETRON 4 MG/2 ML VIAL IVP PRN (13:20)
[2021-06-01] MEDS ORDERED: SODIUM CHLORIDE FLUSH 0.9% 10 ML SYRINGE IVP PRN (13:20)
[2021-06-01] MEDS ORDERED: LORazepam 2 MG/ML VIAL IVP PRN (13:27)
--- NOTE | 2021-06-01 13:27 | HISTORY & PHYSICAL EXAMINATION ---
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 He presented to the ED today with left lower extremity weakness and a fall. Symptoms started last night when he tried to get up to go to the bathroom and fell. He then tried using his walker and with this was able to go to the bathroom and returned to bed. This morning he woke up to go to the bathroom again and fell. At that point he called EMS and was brought to the ED. Work-up in the ED included CT angiogram of the head and neck and subsequently brain MRI. This showed a tiny acute infarct in the right thalamus and posterior limb of the internal capsule. Global cerebral volume loss and chronic vascular ischemic changes both moderate to severe and advanced for age. Remote right frontal and left frontal infarcts. As a result of this findings the patient was presented for admission for further treatment to include physical therapy. At bedside he was resting comfortably. He reported mild right frontal headache. He denied double vision, blurry vision or difficulties speaking. He also denied chest pain, dyspnea, abdominal pain, nausea, vomiting, fever or chills. He uses a walker at home most of the time. History - Past Medical History Cardiovascular: reports: Hypertension Respiratory: reports: COPD Neuro: reports: None Endocrine/Autoimmune: reports: None GI: reports: None : reports: None HEENT: reports: None Psych: reports: None Musculoskeletal: reports: None Derm: reports: Other (Skin Cancer, s/p radiation) MRSA Hx?: No - Past Surgical History Derm: reports: Skin cancer surgery Other past surgical history: right elbow surgery - Family & Social History Family History Comment/Other: Patient's mother from breast cancer. His father from an MT. Social History Notes: He quit smoking cigarettes 3 years ago. He smoked for 10 to 16 years, 1 pack/day. He used to drink at least a sixpack of beer daily. He quit drinking in 2016. He denies any recreational substance use. He lives in his apartment alone. He has a caregiver who comes 2 to 3 days a week for 2 to 3 hours each of the days and assists with meals, laundry, cleaning and shower. - POLST Patient has POLST: Yes POLST Status: Full Code Meds/Allgy - Home Medications Home Medications: Ambulatory Orders Medication Instructions Recorded Confirmed Fexofenadine HCl 180 mg PO DAILY PRN 06/01/21 06/01/21 hydrOXYzine HCL [Hydroxyzine HCl] 10 mg PO BID PRN 06/01/21 06/01/21 - Allergies Allergies/Adverse Reactions: Allergies Allergy/AdvReac Type Severity Reaction Status Date / Time No Known Drug Allergies Allergy Verified 06/01/21 08:18 Review of Systems - Constitutional Constitutional: denies: Fatigue, Fever - Eyes Eyes: denies: Pain, Field loss, Vision loss, Dipolpia - Ears, Nose & Throat Ears, Nose & Throat: denies: Vertigo - Cardiovascular Cariovascular: denies: Irregular heart rate, Palpitations, Chest pain, Edema, Lightheadedness, Syncope - Respiratory Respiratory: denies: Cough, Sputum production, Wheezing, SOB at rest, SOB with exertion - Gastrointestinal Gastrointestinal: denies: Abdominal pain, Abdominal distention, Constipation, Nausea, Vomiting, Coffee grounds emesis, Reflux/heartburn - Genitourinary Genitourinary: denies: Dysuria, Frequency, Urgency, Hematuria - Musculoskeletal Musculoskeletal: denies: Muscle pain, Back pain, Muscle aches, Stiffness - Integumentary Integumentary: denies: Rash, Pruritis, Lesions - Neurological Neurological: reports: Focal weakness (left sided weakness), Headache (right frontal), Numbness (left sided). denies: Dizziness - Psychiatric Psychiatric: denies: Depression, Anxiety - Endocrine Endocrine: denies: Polyuria, Polydypsia - Hematologic/Lymphatic Hematologic/Lymphatic: reports: Bruising (left elbow). denies: Anemia, Petechiae Prior Level of Functionality: He lives in his apartment alone. He has a caregiver who comes 2 to 3 days a week for 2 to 3 hours each of the days and assists with meals, laundry, cleaning and shower. He uses a walker to get around. Exam - Vital Signs Vital Signs: Vital Signs x48h Temp Pulse Resp BP Pulse Ox 06/01/21 10:18 91 21 186/92 H 100 06/01/21 08:15 36.8 C 90 20 194/82 H 99 - Physical Exam General Appearance: positive: Alert, Mild distress Eyes Bilateral: positive: PERRL, EOMI ENT: positive: No signs of dehydration Neck: positive: No JVD, Trachea midline Respiratory: positive: Chest non-tender, No respiratory distress, Breath sounds nml. negative: Wheezes, Rales, Rhonchi Cardiovascular: positive: Regular rate & rhythm, No murmur Abdomen: positive: Non-tender, No organomegaly, Nml bowel sounds, No distention. negative: Guarding, Rebound Back: positive: Nml inspection Skin: positive: Color nml, No rash, Warm, Dry Extremities: positive: Non-tender, Nml appearance, No pedal edema Neurologic/Psychiatric: positive: Oriented x3, Motor nml (LUE 4/5, LLE 3/5, RUE 5/5, RLE 5/5), Mood/affect nml, Weakness (left sided weakness) Conclusion/Plan - Problem List (1) Cerebrovascular accident (CVA) Conclusion/Plan: Brain MRI showed a tiny acute infarct in the right thalamus and posterior limb of the internal capsule. Global cerebral volume loss and chronic vascular ischemic changes both moderate to severe and advanced for age. Remote right frontal and left frontal infarcts. Permissive hypertension for 24 hours Check lipid panel, hemoglobin A1c. Neurochecks every shift. Patient was given a full dose of aspirin. We will continue baby aspirin daily. Atorvastatin 40 mg po qpm. 2D echocardiogram when available. (2) Hypertension Conclusion/Plan: Will allow permissive hypertension for 24 hours. Afterwards would start the patient on an oral antihypertensive - Lab Results Fish Bones: 06/02/21 06:57 06/02/21 06:57 Core Measures - Anticipated LOS I expect patient to be DC'd or transferred within 96 hours.: Yes - DVT/VTE - Prophylaxis VTE/DVT Device ordered at admit?: Yes VTE/DVT Prophylaxis med ordered at admit?: Yes
[2021-06-01] MEDS: ACETAMINOPHEN 325 MG TABLET PO PRN (16:38)
[2021-06-01] MEDS: SODIUM CHLORIDE FLUSH 0.9% 10 ML SYRINGE IVP SCH (16:38)
[2021-06-01] MEDS: ATORVASTATIN 40 MG TABLET PO SCH (21:50)
[2021-06-02] MEDS: SODIUM CHLORIDE FLUSH 0.9% 10 ML SYRINGE IVP SCH ×3 (05:33→20:57)
[2021-06-02] MEDS: ACETAMINOPHEN 325 MG TABLET PO PRN ×4 (06:31→20:56)
[2021-06-02 07:16] LABS: BASOPHILS # (AUTO) 0.1 10^3/uL (0.0-0.1); BASOPHILS % (AUTO) 1.8 %; EOSINOPHILS # (AUTO) 0.8 10^3/uL (0.0-0.7); EOSINOPHILS % (AUTO) 11.5 %; HGB - HEMOGLOBIN 12.7 g/dL (14.0-18.0); LYMPHOCYTES # (AUTO) 1.6 10^3/uL (1.5-3.5); LYMPHOCYTES % (AUTO) 22.2 %; MEAN CORPUSCULAR HEMOGLOBIN 28.9 pg (27.0-31.0); MEAN CORPUSCULAR HGB CONC 32.6 g/dL (32.0-36.0); MEAN CORPUSCULAR VOLUME 88.8 fL (80.0-94.0); MEAN PLATELET VOLUME 10.1 fL (7.4-11.4); MONOCYTES # (AUTO) 0.5 10^3/uL (0.0-1.0); MONOCYTES % (AUTO) 7.6 %; NEUTROPHILS % (AUTO) 56.6 %; PLT - PLATELET COUNT 334 10^3/uL (130-450); RED BLOOD COUNT 4.39 10^6/uL (4.70-6.10); RED CELL DISTRIBUTION WIDTH 14.3 % (12.0-15.0); WHITE BLOOD COUNT 7.1 x10^3/uL (4.8-10.8)
[2021-06-02 07:34] LABS: BUN - BLOOD UREA NITROGEN 23 mg/dL (6-20); CALCIUM 9.3 mg/dL (8.5-10.3); CARBON DIOXIDE - CO2 27 mmol/L (21-32); CHLORIDE 107 mmol/L (101-111); CHOL/HDL RATIO 3.6 (<5.0); CHOLESTEROL 188 mg/dL; GFR - MDRD 75 (>89); GLUCOSE 137 mg/dL (70-100); HDL CHOLESTEROL 52 mg/dL; LDL CHOLESTEROL,CALCULATED 122 mg/dL; LDL/HDL RATIO 2.3 (<3.6); SODIUM 145 mmol/L (135-145); TRIGLYCERIDES 69 mg/dL; VLDL CHOLESTEROL 14 mg/dL
[2021-06-02] MEDS: amLODIPine 5 MG TABLET PO SCH (08:07)
[2021-06-02] MEDS: ASPIRIN EC 81 MG TABLET PO SCH (08:07)
[2021-06-02] MEDS: PRENATAL VITAMIN TABLET PO SCH (08:07)
[2021-06-02] MEDS: hydrALAZINE INJ 20 MG/ML VIAL IVP PRN (09:28)
[2021-06-02 10:32] LABS: ESTIMATED AVERAGE GLUCOSE 108 mg/dL (70-100); HEMOGLOBIN A1c% 5.4 % (4.27-6.07)
--- NOTE | 2021-06-02 10:44 | PROVIDER PROGRESS NOTE ---
Assessment/Plan - Problem List (1) Cerebrovascular accident (CVA) Assessment/Plan: Brain MRI showed a tiny acute infarct in the right thalamus and posterior limb of the internal capsule. On baby aspirin daily. Atorvastatin 40 mg p.o. every afternoon. Hemoglobin A1c was 5.4. Amlodipine 5 mg p.o. daily initiated. Hydralazine 10 mg IV every 6 hours as needed for systolic blood pressure greater than 160. Suspect that patient will likely need placement to SNF. Awaiting feedback from PT/OT (2) Hypertension Assessment/Plan: Amlodipine 5 mg p.o. daily initiated. Hydralazine 10 mg IV every 6 hours as needed for systolic blood pressure greater than 160 - Current Meds Current Meds: Current Medications Generic Name Dose Route Start Last Admin Trade Name Freq PRN Reason Stop Dose Admin Acetaminophen 650 mg 06/01/21 13:20 06/02/21 06:31 Acetaminophen 325 Mg Tablet PO 650 mg Q4HR PRN Administration Pain 1 to 4 Amlodipine Besylate 5 mg 06/02/21 09:00 06/02/21 08:07 Amlodipine 5 Mg Tablet PO 5 mg DAILY SANIYA Administration Aspirin 81 mg 06/02/21 09:00 06/02/21 08:07 Aspirin Ec 81 Mg Tablet PO 81 mg DAILY SANIYA Administration Atorvastatin Calcium 40 mg 06/01/21 21:00 06/01/21 21:50 Atorvastatin 40 Mg Tablet PO 40 mg QPM SANIYA Administration Hydralazine HCl 10 mg 06/02/21 07:14 06/02/21 09:28 Hydralazine Inj 20 Mg/Ml Vial IVP 10 mg Q6H PRN Administration PER PHYSICIAN ORDER Multivit/Folic Acid/Iron 1 tab 06/02/21 09:00 06/02/21 08:07 Vitamin Tablet PO 1 tab DAILY SANIYA Administration Sodium Chloride 10 ml 06/01/21 17:00 06/02/21 08:07 Sodium Chloride Flush 0.9% 10 Ml Syringe IVP 10 ml 0100,0900,1700 SANIYA Administration - Lab Result Fish Bone Diagrams: 06/02/21 06:57 06/02/21 06:57 - Additional Planning My Orders: My Active Orders 06/01/21 Lunch Cardiac Diet [DIET] 06/01/21 13:20 Activity Orders [RC] Q2HR IO [RC] IOSHIFT IV Insert [RC] PRN Initiate Bowel Care Protocol [RC] .protocol Initiate Line Care Protocol [RC] QSHIFT Initiate Personal Care Protoco [RC] .protocol Oxygen Therapy [RC] .PRN Telemetry- [RC] Q4HR Vital Signs [RC] Q4HR Acetaminophen [Tylenol] 650 mg PO Q4HR PRN Ondansetron Inj [Zofran Inj] 4 mg IVP Q6HR PRN Sodium Chloride Flush 0.9% [Normal Saline Flush 0.9%] 10 ml IVP PRN PRN Code Status [OTHERS] Routine Condition of Patient [OTHERS] Routine DVT Prophylaxis [OTHERS] Routine 06/01/21 13:24 SCDs [RC] QSHIFT Evaluate and Treat OT [OT] Routine Evaluate and Treat PT [PT] Routine 06/01/21 13:27 LORazepam INJ [Ativan Inj (Vial)] 1 mg IVP Q30M PRN 06/01/21 17:00 Sodium Chloride Flush 0.9% [Normal Saline Flush 0.9%] 10 ml IVP 0100,0900,1700 06/01/21 17:39 Neuro Check [RC] QSHIFT 06/01/21 21:00 Atorvastatin [Lipitor] 40 mg PO QPM 06/02/21 07:14 hydrALAZINE INJ [Apresoline Inj] 10 mg IVP Q6H PRN 06/02/21 08:00 Echo [Echo Transthoracic Complete] [ECHO] Routine 06/02/21 09:00 Aspirin EC [Ecotrin] 81 mg PO DAILY Vitamin [Trinatal Rx 1] 1 tab PO DAILY amLODIPine [Norvasc] 5 mg PO DAILY 06/03/21 05:00 BMP - BASIC METABOLIC PANEL [CHEM] DAILYLAB CBC - COMP BLD CT W/AUTO DIFF [HEME] DAILYLAB 06/04/21 05:00 BMP - BASIC METABOLIC PANEL [CHEM] DAILYLAB CBC - COMP BLD CT W/AUTO DIFF [HEME] DAILYLAB 06/05/21 05:00 BMP - BASIC METABOLIC PANEL [CHEM] DAILYLAB CBC - COMP BLD CT W/AUTO DIFF [HEME] DAILYLAB 06/06/21 05:00 BMP - BASIC METABOLIC PANEL [CHEM] DAILYLAB CBC - COMP BLD CT W/AUTO DIFF [HEME] DAILYLAB Subjective - Subjective Patient Reports: Other (Slept well last night. Was just about transferring to the bedside chair at time of exam. Required his walker and 1 assist. Fine motor skills with left hand which is the dominant side is currently poor .) Objective Vital Signs: Vital Signs - 24 hr 06/01/21 06/01/21 06/01/21 14:36 15:51 20:50 Temperature 36.6 C 36.5 C 36.3 C L Heart Rate [ 90 83 91 Brachial] Respiratory 17 18 16 Rate Blood Pressure Blood Pressure 179/82 H 156/93 H [Right Brachial artery] O2 Saturation 96 96 99 06/01/21 06/02/21 06/02/21 23:30 05:11 07:46 Temperature 36.4 C L 36.5 C 36.5 C Heart Rate [ 73 98 82 Brachial] Respiratory 16 18 18 Rate Blood Pressure Blood Pressure 168/72 H 170/95 H 171/83 H [Right Brachial artery] O2 Saturation 96 95 95 06/02/21 06/02/21 06/02/21 09:32 09:34 09:39 Temperature Heart Rate [ 82 81 Brachial] Respiratory Rate Blood Pressure Blood Pressure 177/82 H 122/63 103/69 [Right Brachial artery] O2 Saturation 06/02/21 06/02/21 06/02/21 09:44 09:58 10:00 Temperature Heart Rate [ 81 88 Brachial] Respiratory Rate Blood Pressure 130/68 Blood Pressure 105/63 130/68 [Right Brachial artery] O2 Saturation 06/02/21 10:16 Temperature Heart Rate [ 89 Brachial] Respiratory Rate Blood Pressure Blood Pressure 145/84 H [Right Brachial artery] O2 Saturation Oxygen O2 Source Room air I&O (Last 24 Hrs): Intake and Output Totals x24h 05/31/21 06/01/21 06/02/21 23:59 23:59 23:59 Intake Total 200 330 Balance 200 330 General: Alert, Oriented x3 HEENT: PERRLA, EOMI Neck: Supple, No JVD Neuro: Alert, Focal Deficits (left sided weakness), Oriented Times 3 Cardiovascular: Regular rate, Normal S1, Normal S2, No murmurs Respiratory: Chest non-tender, No respiratory distress, Breath sounds nml Abdomen: Normal bowel sounds, Soft, No tenderness, No masses Extremities: No clubbing, No cyanosis, No edema Skin: No rashes, No breakdown, No significant lesion - Results Results: Laboratory Results WBC 7.1 x10^3/uL (4.8-10.8) 06/02/21 06:57 RBC 4.39 10^6/uL (4.70-6.10) L 06/02/21 06:57 Hgb 12.7 g/dL (14.0-18.0) L 06/02/21 06:57 Hct 39.0 % (42.0-52.0) L 06/02/21 06:57 MCV 88.8 fL (80.0-94.0) 06/02/21 06:57 MCH 28.9 pg (27.0-31.0) 06/02/21 06:57 MCHC 32.6 g/dL (32.0-36.0) 06/02/21 06:57 RDW 14.3 % (12.0-15.0) 06/02/21 06:57 Plt Count 334 10^3/uL (130-450) 06/02/21 06:57 MPV 10.1 fL (7.4-11.4) 06/02/21 06:57 Neut # (Auto) 4.0 10^3/uL (1.5-6.6) 06/02/21 06:57 Lymph # (Auto) 1.6 10^3/uL (1.5-3.5) 06/02/21 06:57 [place] # (Auto) 0.5 10^3/uL (0.0-1.0) 06/02/21 06:57 Eos # (Auto) 0.8 10^3/uL (0.0-0.7) H 06/02/21 06:57 Baso # (Auto) 0.1 10^3/uL (0.0-0.1) 06/02/21 06:57 Absolute Nucleated RBC 0.00 x10^3/uL 06/02/21 06:57 Nucleated RBC % 0.0 /100WBC 06/02/21 06:57 PT 11.5 secs (9.9-12.6) 06/01/21 08:17 INR 1.0 (0.8-1.2) 06/01/21 08:17 Sodium 145 mmol/L (135-145) 06/02/21 06:57 Potassium 4.0 mmol/L (3.5-5.0) 06/02/21 06:57 Chloride 107 mmol/L (101-111) 06/02/21 06:57 Carbon Dioxide 27 mmol/L (21-32) 06/02/21 06:57 Anion Gap 11.0 (6-13) 06/02/21 06:57 BUN 23 mg/dL (6-20) H 06/02/21 06:57 Creatinine 1.0 mg/dL (0.6-1.2) 06/02/21 06:57 Estimated GFR (MDRD) 75 (>89) L 06/02/21 06:57 Glucose 137 mg/dL (70-100) H 06/02/21 06:57 Estimat Average Glucose 108 mg/dL (70-100) H 06/02/21 06:57 Hemoglobin A1c % 5.4 % (4.27-6.07) 06/02/21 06:57 Calcium 9.3 mg/dL (8.5-10.3) 06/02/21 06:57 Magnesium 1.9 mg/dL (1.7-2.8) 06/01/21 08:17 Triglycerides 69 mg/dL (-149) 06/02/21 06:57 Cholesterol 188 mg/dL (-199) 06/02/21 06:57 LDL Cholesterol, Calc 122 mg/dL (-129) 06/02/21 06:57 VLDL Cholesterol 14 mg/dL 06/02/21 06:57 HDL Cholesterol 52 mg/dL (60-) L 06/02/21 06:57 LDL/HDL Ratio 2.3 (<3.6) 06/02/21 06:57 Cholesterol/HDL Ratio 3.6 (<5.0) 06/02/21 06:57 Nasal Adenovirus (PCR) NOT DETECTED 06/01/21 10:24 Nasal B. parapertussis DNA (PCR) NOT DETECTED 06/01/21 10:24 Nasal Coronavir 229E PCR NOT DETECTED 06/01/21 10:24 Nasal Coronavir HKU1 PCR NOT DETECTED 06/01/21 10:24 Nasal Coronavir NL63 PCR NOT DETECTED 06/01/21 10:24 Nasal Coronavir OC43 PCR NOT DETECTED 06/01/21 10:24 Nasal Enterovir/Rhinovir PCR NOT DETECTED 06/01/21 10:24 Nasal Influenza B PCR NOT DETECTED 06/01/21 10:24 Nasal Influenza A PCR NOT DETECTED 06/01/21 10:24 Nasal Parainfluen 1 PCR NOT DETECTED 06/01/21 10:24 Nasal Parainfluen 2 PCR NOT DETECTED 06/01/21 10:24 Nasal Parainfluen 3 PCR NOT DETECTED 06/01/21 10:24 Nasal Parainfluen 4 PCR NOT DETECTED 06/01/21 10:24 Nasal RSV (PCR) NOT DETECTED 06/01/21 10:24 Nasal B.pertussis DNA PCR NOT DETECTED 06/01/21 10:24 Nasal C.pneumoniae (PCR) NOT DETECTED 06/01/21 10:24 [place]le Human Metapneumo PCR NOT DETECTED 06/01/21 10:24 Nasal M.pneumoniae (PCR) NOT DETECTED 06/01/21 10:24 Nasal SARS-CoV-2 (PCR) NOT DETECTED 06/01/21 10:24 ABX Reporting Has patient been on IV antibiotics over the past 48 hours?: No
[2021-06-02] MEDS: ATORVASTATIN 40 MG TABLET PO SCH (20:56)
[2021-06-03] MEDS: hydrALAZINE INJ 20 MG/ML VIAL IVP PRN (00:11)
[2021-06-03] MEDS: SODIUM CHLORIDE FLUSH 0.9% 10 ML SYRINGE IVP SCH ×3 (01:06→20:26)
--- NOTE | 2021-06-03 05:33 | PROVIDER PROGRESS NOTE ---
Barrel Bander Note - Barrel Bander Note Barrel Bander Note: The DONOR RECRUITMENT MANAGER reported to RN that pt had a run of monomorphic VT at 0505 this a.m. Telemetry strip showed a run of sustained, wide-complex tachycardia at a rate of 160, unknown duration from the telemetry strip (vs artifact). RN checked on pt: He was just getting up from being on the bedside commode, and had no CP, SOB or dizziness. VS were checked and were 146/ , HR had recovered to 80's, afebrile and no desturation. He was in bed, and comfortable. EKG ordered STAT which I interpreted, and it showed: Ectopic atrial rhythm (inverted P waves present), short UT interval, LVH voltage. Since previous EKG from 06/01/21, no change. Imp: Probable VT Plan: check troponins x2 check Mg and K with a.m. labs An Echo has already been ordered (for stroke W/U), but possibly no [employer] here today (out sick)
[2021-06-03] MEDS: ACETAMINOPHEN 325 MG TABLET PO PRN ×3 (05:37→14:09)
[2021-06-03 06:29] LABS: BASOPHILS # (AUTO) 0.1 10^3/uL (0.0-0.1); BASOPHILS % (AUTO) 1.5 %; EOSINOPHILS # (AUTO) 0.7 10^3/uL (0.0-0.7); EOSINOPHILS % (AUTO) 8.6 %; HCT - HEMATOCRIT 39.9 % (42.0-52.0); HGB - HEMOGLOBIN 12.9 g/dL (14.0-18.0); LYMPHOCYTES % (AUTO) 25.2 %; MEAN CORPUSCULAR HEMOGLOBIN 28.6 pg (27.0-31.0); MEAN CORPUSCULAR HGB CONC 32.3 g/dL (32.0-36.0); MEAN CORPUSCULAR VOLUME 88.5 fL (80.0-94.0); MEAN PLATELET VOLUME 10.1 fL (7.4-11.4); MONOCYTES # (AUTO) 0.7 10^3/uL (0.0-1.0); MONOCYTES % (AUTO) 9.1 %; NEUTROPHILS # (AUTO) 4.4 10^3/uL (1.5-6.6); NEUTROPHILS % (AUTO) 55.2 %; PLT - PLATELET COUNT 378 10^3/uL (130-450); RED BLOOD COUNT 4.51 10^6/uL (4.70-6.10); RED CELL DISTRIBUTION WIDTH 14.5 % (12.0-15.0)
[2021-06-03 06:38] LABS: CALCIUM 9.4 mg/dL (8.5-10.3); CREATININE 0.9 mg/dL (0.6-1.2); POTASSIUM 3.9 mmol/L (3.5-5.0)
--- NOTE | 2021-06-03 08:17 | PROVIDER PROGRESS NOTE ---
Assessment/Plan - Problem List (1) Cerebrovascular accident (CVA) Assessment/Plan: Brain MRI showed a tiny acute infarct in the right thalamus and posterior limb of the internal capsule. On baby aspirin daily. Atorvastatin 40 mg p.o. every afternoon. Hemoglobin A1c was 5.4. Amlodipine 5 mg p.o. daily initiated. Hydralazine 10 mg IV every 6 hours as needed for systolic blood pressure greater than 160. PT/OT. SNF recommended by PT. Social work to assist with placement. (2) Hypertension Assessment/Plan: Amlodipine 5 mg p.o. daily initiated. Hydralazine 10 mg IV every 6 hours as needed for systolic blood pressure greater than 160 (3) Nonsustained ventricular tachycardia Assessment/Plan: Patient asymptomatic at time of occurrence. He was trying to go to the bathroom at the time. EKG was unremarkable. Troponin was 12.5 and 14.6. Continue to monitor on telemetry - Current Meds Current Meds: Current Medications Generic Name Dose Route Start Last Admin Trade Name Freq PRN Reason Stop Dose Admin Acetaminophen 650 mg 06/01/21 13:20 06/03/21 05:37 Acetaminophen 325 Mg Tablet PO 650 mg Q4HR PRN Administration Pain 1 to 4 Amlodipine Besylate 5 mg 06/02/21 09:00 06/02/21 08:07 Amlodipine 5 Mg Tablet PO 5 mg DAILY SANIYA Administration Aspirin 81 mg 06/02/21 09:00 06/02/21 08:07 Aspirin Ec 81 Mg Tablet PO 81 mg DAILY SANIYA Administration Atorvastatin Calcium 40 mg 06/01/21 21:00 06/02/21 20:56 Atorvastatin 40 Mg Tablet PO 40 mg QPM SANIYA Administration Hydralazine HCl 10 mg 06/02/21 07:14 06/03/21 00:11 Hydralazine Inj 20 Mg/Ml Vial IVP 10 mg Q6H PRN Administration PER PHYSICIAN ORDER Multivit/Folic Acid/Iron 1 tab 06/02/21 09:00 06/02/21 08:07 Vitamin Tablet PO 1 tab DAILY SANIYA Administration Sodium Chloride 10 ml 06/01/21 17:00 06/03/21 01:06 Sodium Chloride Flush 0.9% 10 Ml Syringe IVP 10 ml 0100,[id number],1700 SANIYA Administration - Lab Result Fish Bone Diagrams: 06/03/21 06:00 06/03/21 06:00 - Additional Planning My Orders: My Active Orders 06/02/21 08:00 Echo [Echo Transthoracic Complete] [ECHO] Routine 06/02/21 09:00 Aspirin EC [Ecotrin] 81 mg PO DAILY Vitamin [Trinatal Rx 1] 1 tab PO DAILY amLODIPine [Norvasc] 5 mg PO DAILY 06/02/21 Dinner Cardiac Diet [DIET] 06/04/21 05:00 BMP - BASIC METABOLIC PANEL [CHEM] DAILYLAB CBC - COMP BLD CT W/AUTO DIFF [HEME] DAILYLAB 06/05/21 05:00 BMP - BASIC METABOLIC PANEL [CHEM] DAILYLAB CBC - COMP BLD CT W/AUTO DIFF [HEME] DAILYLAB 06/06/21 05:00 BMP - BASIC METABOLIC PANEL [CHEM] DAILYLAB CBC - COMP BLD CT W/AUTO DIFF [HEME] DAILYLAB Subjective - Subjective Patient Reports: Other (Slept well last night. Denied any complaints.) Objective Vital Signs: Vital Signs - 24 hr 06/02/21 06/02/21 06/02/21 09:32 09:34 09:39 Temperature Heart Rate [ Activity] Heart Rate [ 82 81 Brachial] Heart Rate [ Sitting] Heart Rate [ Supine] Respiratory Rate Blood Pressure Blood Pressure [Activity] Blood Pressure [Left Brachial artery] Blood Pressure 177/82 H 122/63 103/69 [Right Brachial artery] Blood Pressure [Sitting] Blood Pressure [Supine] O2 Saturation 06/02/21 06/02/21 06/02/21 09:44 09:58 10:00 Temperature Heart Rate [ Activity] Heart Rate [ 81 88 Brachial] Heart Rate [ Sitting] Heart Rate [ Supine] Respiratory 17 Rate Blood Pressure 130/68 Blood Pressure [Activity] Blood Pressure [Left Brachial artery] Blood Pressure 105/63 130/68 [Right Brachial artery] Blood Pressure [Sitting] Blood Pressure [Supine] O2 Saturation 06/02/21 06/02/21 06/02/21 10:16 10:40 11:09 Temperature 36.4 C L Heart Rate [ 122 H Activity] Heart Rate [ 89 116 H Brachial] Heart Rate [ 122 H Sitting] Heart Rate [ 99 Supine] Respiratory 20 Rate Blood Pressure Blood Pressure 114/84 H [Activity] Blood Pressure [Left Brachial artery] Blood Pressure 145/84 H 114/87 H [Right Brachial artery] Blood Pressure 114/84 H [Sitting] Blood Pressure 168/99 H [Supine] O2 Saturation 97 06/02/21 06/02/21 06/03/21 16:17 21:00 00:11 Temperature 36.5 C 36.3 C L Heart Rate [ Activity] Heart Rate [ 86 92 Brachial] Heart Rate [ Sitting] Heart Rate [ Supine] Respiratory 18 20 Rate Blood Pressure 162/82 H Blood Pressure [Activity] Blood Pressure 132/78 H [Left Brachial artery] Blood Pressure 152/75 H [Right Brachial artery] Blood Pressure [Sitting] Blood Pressure [Supine] O2 Saturation 96 96 06/03/21 06/03/21 06/03/21 00:16 00:25 00:26 Temperature Heart Rate [ Activity] Heart Rate [ 84 Brachial] Heart Rate [ Sitting] Heart Rate [ Supine] Respiratory 14 Rate Blood Pressure Blood Pressure [Activity] Blood Pressure 178/77 H 153/71 H [Left Brachial artery] Blood Pressure [Right Brachial artery] Blood Pressure [Sitting] Blood Pressure [Supine] O2 Saturation 06/03/21 06/03/21 06/03/21 00:30 00:39 00:41 Temperature 36.6 C Heart Rate [ Activity] Heart Rate [ 105 H 81 Brachial] Heart Rate [ Sitting] Heart Rate [ Supine] Respiratory 16 Rate Blood Pressure 120/59 L Blood Pressure [Activity] Blood Pressure 139/76 H 162/68 H [Left Brachial artery] Blood Pressure [Right Brachial artery] Blood Pressure [Sitting] Blood Pressure [Supine] O2 Saturation 96 06/03/21 06/03/21 06/03/21 00:43 00:45 01:01 Temperature Heart Rate [ Activity] Heart Rate [ 94 Brachial] Heart Rate [ Sitting] Heart Rate [ Supine] Respiratory Rate Blood Pressure Blood Pressure [Activity] Blood Pressure 123/64 128/57 L 120/59 L [Left Brachial artery] Blood Pressure [Right Brachial artery] Blood Pressure [Sitting] Blood Pressure [Supine] O2 Saturation 06/03/21 06/03/21 06/03/21 05:15 05:17 08:14 Temperature 36.6 C 36.4 C L Heart Rate [ Activity] Heart Rate [ 91 98 81 Brachial] Heart Rate [ Sitting] Heart Rate [ Supine] Respiratory 17 18 18 Rate Blood Pressure Blood Pressure [Activity] Blood Pressure 136/71 H 148/74 H [Left Brachial artery] Blood Pressure 146/78 H [Right Brachial artery] Blood Pressure [Sitting] Blood Pressure [Supine] O2 Saturation 96 95 96 Oxygen O2 Source Room air I&O (Last 24 Hrs): Intake and Output Totals x24h 06/01/21 06/02/21 06/03/21 23:59 23:59 23:59 Intake Total 200 1520 250 Output Total 75 Balance 200 1445 250 Comments/Notes: General: Alert, Oriented x3 HEENT: PERRLA, EOMI Neck: Supple, No JVD Neuro: Alert, Focal Deficits (left sided weakness), Oriented Times 3 Cardiovascular: Regular rate, Normal S1, Normal S2, No murmurs Respiratory: Chest non-tender, No respiratory distress, Breath sounds nml Abdomen: Normal bowel sounds, Soft, No tenderness, No masses Extremities: No clubbing, No cyanosis, No edema Skin: No rashes, No breakdown, No significant lesion - Results Results: Laboratory Results WBC 8.0 x10^3/uL (4.8-10.8) 06/03/21 06:00 RBC 4.51 10^6/uL (4.70-6.10) L 06/03/21 06:00 Hgb 12.9 g/dL (14.0-18.0) L 06/03/21 06:00 Hct 39.9 % (42.0-52.0) L 06/03/21 06:00 MCV 88.5 fL (80.0-94.0) 06/03/21 06:00 MCH 28.6 pg (27.0-31.0) 06/03/21 06:00 MCHC 32.3 g/dL (32.0-36.0) 06/03/21 06:00 RDW 14.5 % (12.0-15.0) 06/03/21 06:00 Plt Count 378 10^3/uL (130-450) 06/03/21 06:00 MPV 10.1 fL (7.4-11.4) 06/03/21 06:00 Neut # (Auto) 4.4 10^3/uL (1.5-6.6) 06/03/21 06:00 Lymph # (Auto) 2.0 10^3/uL (1.5-3.5) 06/03/21 06:00 Ritchie # (Auto) 0.7 10^3/uL (0.0-1.0) 06/03/21 06:00 Eos # (Auto) 0.7 10^3/uL (0.0-0.7) 06/03/21 06:00 Baso # (Auto) 0.1 10^3/uL (0.0-0.1) 06/03/21 06:00 Absolute Nucleated RBC 0.00 x10^3/uL 06/03/21 06:00 Nucleated RBC % 0.0 /100WBC 06/03/21 06:00 PT 11.5 secs (9.9-12.6) 06/01/21 08:17 INR 1.0 (0.8-1.2) 06/01/21 08:17 Sodium 141 mmol/L (135-145) 06/03/21 06:00 Potassium 3.9 mmol/L (3.5-5.0) 06/03/21 06:00 Chloride 104 mmol/L (101-111) 06/03/21 06:00 Carbon Dioxide 27 mmol/L (21-32) 06/03/21 06:00 Anion Gap 10.0 (6-13) 06/03/21 06:00 BUN 26 mg/dL (6-20) H 06/03/21 06:00 Creatinine 0.9 mg/dL (0.6-1.2) 06/03/21 06:00 Estimated GFR (MDRD) 85 (>89) L 06/03/21 06:00 Glucose 132 mg/dL (70-100) H 06/03/21 06:00 Estimat Average Glucose 108 mg/dL (70-100) H 06/02/21 06:57 Hemoglobin A1c % 5.4 % (4.27-6.07) 06/02/21 06:57 Calcium 9.4 mg/dL (8.5-10.3) 06/03/21 06:00 Magnesium 2.0 mg/dL (1.7-2.8) 06/03/21 06:00 Troponin I High Sens 12.5 ng/L (2.3-19.7) 06/03/21 06:00 Triglycerides 69 mg/dL (-149) 06/02/21 06:57 Cholesterol 188 mg/dL (-199) 06/02/21 06:57 LDL Cholesterol, Calc 122 mg/dL (-129) 06/02/21 06:57 VLDL Cholesterol 14 mg/dL 06/02/21 06:57 HDL Cholesterol 52 mg/dL (60-) L 06/02/21 06:57 LDL/HDL Ratio 2.3 (<3.6) 06/02/21 06:57 Cholesterol/HDL Ratio 3.6 (<5.0) 06/02/21 06:57 Nasal Adenovirus (PCR) NOT DETECTED 06/01/21 10:24 Nasal B. parapertussis DNA (PCR) NOT DETECTED 06/01/21 10:24 Nasal Coronavir 229E PCR NOT DETECTED 06/01/21 10:24 Nasal Coronavir HKU1 PCR NOT DETECTED 06/01/21 10:24 Nasal Coronavir NL63 PCR NOT DETECTED 06/01/21 10:24 Nasal Coronavir OC43 PCR NOT DETECTED 06/01/21 10:24 Nasal Enterovir/Rhinovir PCR NOT DETECTED 06/01/21 10:24 Nasal Influenza B PCR NOT DETECTED 06/01/21 10:24 Nasal Influenza A PCR NOT DETECTED 06/01/21 10:24 Nasal Parainfluen 1 PCR NOT DETECTED 06/01/21 10:24 Nasal Parainfluen 2 PCR NOT DETECTED 06/01/21 10:24 Nasal Parainfluen 3 PCR NOT DETECTED 06/01/21 10:24 Nasal Parainfluen 4 PCR NOT DETECTED 06/01/21 10:24 Nasal RSV (PCR) NOT DETECTED 06/01/21 10:24 Nasal B.pertussis DNA PCR NOT DETECTED 06/01/21 10:24 Nasal C.pneumoniae (PCR) NOT DETECTED 06/01/21 10:24 Chele Human Metapneumo PCR NOT DETECTED 06/01/21 10:24 Nasal M.pneumoniae (PCR) NOT DETECTED 06/01/21 10:24 Nasal SARS-CoV-2 (PCR) NOT DETECTED 06/01/21 10:24 ABX Reporting Has patient been on IV antibiotics over the past 48 hours?: No
[2021-06-03] MEDS: ASPIRIN EC 81 MG TABLET PO SCH (10:01)
[2021-06-03] MEDS: amLODIPine 5 MG TABLET PO SCH (10:02)
[2021-06-03] MEDS: PRENATAL VITAMIN TABLET PO SCH (10:02)
[2021-06-03] MEDS: traZODone 50 MG TABLET PO SCH (20:26)
[2021-06-03] MEDS: ATORVASTATIN 40 MG TABLET PO SCH (20:26)
[2021-06-03] MEDS ORDERED: NON FORMULARY MED (Fexofenadine Hcl [Fexofenadine Hcl] 180 MG Tablet) PO PRN (21:12)
[2021-06-04] MEDS: SODIUM CHLORIDE FLUSH 0.9% 10 ML SYRINGE IVP SCH ×3 (00:40→16:40)
[2021-06-04 06:35] LABS: BASOPHILS # (AUTO) 0.1 10^3/uL (0.0-0.1); BASOPHILS % (AUTO) 1.1 %; EOSINOPHILS # (AUTO) 0.6 10^3/uL (0.0-0.7); EOSINOPHILS % (AUTO) 7.8 %; HCT - HEMATOCRIT 41.5 % (42.0-52.0); HGB - HEMOGLOBIN 13.6 g/dL (14.0-18.0); LYMPHOCYTES # (AUTO) 2.1 10^3/uL (1.5-3.5); LYMPHOCYTES % (AUTO) 26.1 %; MEAN CORPUSCULAR HEMOGLOBIN 28.9 pg (27.0-31.0); MEAN CORPUSCULAR HGB CONC 32.8 g/dL (32.0-36.0); MEAN CORPUSCULAR VOLUME 88.1 fL (80.0-94.0); MEAN PLATELET VOLUME 9.9 fL (7.4-11.4); MONOCYTES # (AUTO) 0.7 10^3/uL (0.0-1.0); MONOCYTES % (AUTO) 8.4 %; NEUTROPHILS # (AUTO) 4.6 10^3/uL (1.5-6.6); NEUTROPHILS % (AUTO) 56.4 %; PLT - PLATELET COUNT 376 10^3/uL (130-450); RED BLOOD COUNT 4.71 10^6/uL (4.70-6.10); RED CELL DISTRIBUTION WIDTH 14.4 % (12.0-15.0); WHITE BLOOD COUNT 8.2 x10^3/uL (4.8-10.8)
[2021-06-04 06:48] LABS: CALCIUM 9.8 mg/dL (8.5-10.3); CREATININE 0.9 mg/dL (0.6-1.2); POTASSIUM 4.2 mmol/L (3.5-5.0)
--- NOTE | 2021-06-04 07:46 | PROVIDER PROGRESS NOTE ---
Assessment/Plan - Problem List (1) Cerebrovascular accident (CVA) Assessment/Plan: Brain MRI showed a tiny acute infarct in the right thalamus and posterior limb of the internal capsule. On baby aspirin daily. Atorvastatin 40 mg p.o. every afternoon. Hemoglobin A1c was 5.4. Amlodipine discontinued. Metoprolol succinate 25 mg p.o. daily initiated. Hydralazine 10 mg IV every 6 hours as needed for systolic blood pressure greater than 160. PT/OT. SNF recommended by PT. Social work to assist with placement. (2) Hypertension Assessment/Plan: Amlodipine discontinued. Metoprolol succinate 25 mg p.o. daily initiated. Hydralazine 10 mg IV every 6 hours as needed for systolic blood pressure greater than 160 (3) Nonsustained ventricular tachycardia Assessment/Plan: Patient asymptomatic at time of occurrence. However this has recurred 3 times while he was trying to go to the bathroom at the time. EKG was unremarkable. Troponin was 12.5 and 14.6. Continue to monitor on telemetry 2D echocardiogram was negative for blood clot. EF was about 50 to 55%. It also showed akinetic apex. As a result plan will be to do a nuclear stress test on 06/07/2020. - Current Meds Current Meds: Current Medications Generic Name Dose Route Start Last Admin Trade Name Freq PRN Reason Stop Dose Admin Acetaminophen 650 mg 06/01/21 13:20 06/03/21 14:09 Acetaminophen 325 Mg Tablet PO 650 mg Q4HR PRN Administration Pain 1 to 4 Aspirin 81 mg 06/02/21 09:00 06/03/21 10:01 Aspirin Ec 81 Mg Tablet PO 81 mg DAILY SANIYA Administration Atorvastatin Calcium 40 mg 06/01/21 21:00 06/03/21 20:26 Atorvastatin 40 Mg Tablet PO 40 mg QPM SANIYA Administration Hydralazine HCl 10 mg 06/02/21 07:14 06/03/21 00:11 Hydralazine Inj 20 Mg/Ml Vial IVP 10 mg Q6H PRN Administration PER PHYSICIAN ORDER Multivit/Folic Acid/Iron 1 tab 06/02/21 09:00 06/03/21 10:02 Vitamin Tablet PO 1 tab DAILY SANIYA Administration Sodium Chloride 10 ml 06/01/21 17:00 06/04/21 00:40 Sodium Chloride Flush 0.9% 10 Ml Syringe IVP 10 ml 0100,0900,1700 SANIYA Administration Trazodone HCl 50 mg 06/03/21 21:00 06/03/21 20:26 Trazodone 50 Mg Tablet PO 50 mg QPM SANIYA Administration - Lab Result Fish Bone Diagrams: 06/04/21 06:14 06/04/21 06:14 - Additional Planning My Orders: My Active Orders 06/03/21 21:00 traZODone [Desyrel] 50 mg PO QPM 06/04/21 09:00 Metoprolol Succinate [Toprol Xl] 25 mg PO DAILY 06/05/21 05:00 BMP - BASIC METABOLIC PANEL [CHEM] DAILYLAB CBC - COMP BLD CT W/AUTO DIFF [HEME] DAILYLAB 06/06/21 05:00 BMP - BASIC METABOLIC PANEL [CHEM] DAILYLAB CBC - COMP BLD CT W/AUTO DIFF [HEME] DAILYLAB Subjective - Subjective Patient Reports: Other (Patient was resting comfortably in bed. Complained of tiredness) Objective Vital Signs: Vital Signs - 24 hr 06/03/21 06/03/21 06/03/21 08:14 12:47 16:35 Temperature 36.4 C L 36.3 C L 36.3 C L Heart Rate [ 81 90 Brachial] Heart Rate [ 95 Monitoring electrodes] Respiratory 18 18 20 Rate Blood Pressure 124/70 155/81 H [Left Brachial artery] Blood Pressure [Left Radial artery] Blood Pressure 146/78 H [Right Brachial artery] O2 Saturation 96 98 96 06/03/21 06/03/21 06/04/21 20:23 20:50 00:05 Temperature 36.4 C L Heart Rate [ 96 Brachial] Heart Rate [ Monitoring electrodes] Respiratory 18 Rate Blood Pressure 152/77 H [Left Brachial artery] Blood Pressure 168/140 H [Left Radial artery] Blood Pressure [Right Brachial artery] O2 Saturation 06/04/21 06/04/21 06/04/21 00:08 00:10 00:13 Temperature Heart Rate [ Brachial] Heart Rate [ Monitoring electrodes] Respiratory Rate Blood Pressure 191/94 H [Left Brachial artery] Blood Pressure [Left Radial artery] Blood Pressure 220/102 H 187/100 H [Right Brachial artery] O2 Saturation 06/04/21 06/04/21 06/04/21 00:15 00:19 00:20 Temperature Heart Rate [ 142 H Brachial] Heart Rate [ Monitoring electrodes] Respiratory Rate Blood Pressure [Left Brachial artery] Blood Pressure [Left Radial artery] Blood Pressure 171/93 H 158/108 H 146/85 H [Right Brachial artery] O2 Saturation 06/04/21 06/04/21 06/04/21 00:25 00:40 06:11 Temperature 36.4 C L 36.6 C Heart Rate [ 144 H 93 88 Brachial] Heart Rate [ Monitoring electrodes] Respiratory 19 17 Rate Blood Pressure [Left Brachial artery] Blood Pressure 136/97 H [Left Radial artery] Blood Pressure 141/88 H 179/78 H [Right Brachial artery] O2 Saturation 95 96 06/04/21 06:21 Temperature Heart Rate [ Brachial] Heart Rate [ 85 Monitoring electrodes] Respiratory Rate Blood Pressure [Left Brachial artery] Blood Pressure [Left Radial artery] Blood Pressure 156/81 H [Right Brachial artery] O2 Saturation Oxygen O2 Source Room air I&O (Last 24 Hrs): Intake and Output Totals x24h 06/02/21 06/03/21 06/04/21 23:59 23:59 23:59 Intake Total 1520 620 50 Output Total 75 Balance 1445 620 50 Comments/Notes: General: Alert, Oriented x3 HEENT: PERRLA, EOMI Neck: Supple, No JVD Neuro: Alert, Focal Deficits (left sided weakness), Oriented Times 3 Cardiovascular: Regular rate, Normal S1, Normal S2, No murmurs Respiratory: Chest non-tender, No respiratory distress, Breath sounds nml Abdomen: Normal bowel sounds, Soft, No tenderness, No masses Extremities: No clubbing, No cyanosis, No edema Skin: No rashes, No breakdown, No significant lesion - Results Results: Laboratory Results WBC 8.2 x10^3/uL (4.8-10.8) 06/04/21 06:14 RBC 4.71 10^6/uL (4.70-6.10) 06/04/21 06:14 Hgb 13.6 g/dL (14.0-18.0) L 06/04/21 06:14 Hct 41.5 % (42.0-52.0) L 06/04/21 06:14 MCV 88.1 fL (80.0-94.0) 06/04/21 06:14 MCH 28.9 pg (27.0-31.0) 06/04/21 06:14 MCHC 32.8 g/dL (32.0-36.0) 06/04/21 06:14 RDW 14.4 % (12.0-15.0) 06/04/21 06:14 Plt Count 376 10^3/uL (130-450) 06/04/21 06:14 MPV 9.9 fL (7.4-11.4) 06/04/21 06:14 Neut # (Auto) 4.6 10^3/uL (1.5-6.6) 06/04/21 06:14 Lymph # (Auto) 2.1 10^3/uL (1.5-3.5) 06/04/21 06:14 Clark # (Auto) 0.7 10^3/uL (0.0-1.0) 06/04/21 06:14 Eos # (Auto) 0.6 10^3/uL (0.0-0.7) 06/04/21 06:14 Baso # (Auto) 0.1 10^3/uL (0.0-0.1) 06/04/21 06:14 Absolute Nucleated RBC 0.00 x10^3/uL 06/04/21 06:14 Nucleated RBC % 0.0 /100WBC 06/04/21 06:14 PT 11.5 secs (9.9-12.6) 06/01/21 08:17 INR 1.0 (0.8-1.2) 06/01/21 08:17 Sodium 141 mmol/L (135-145) 06/04/21 06:14 Potassium 4.2 mmol/L (3.5-5.0) 06/04/21 06:14 Chloride 103 mmol/L (101-111) 06/04/21 06:14 Carbon Dioxide 27 mmol/L (21-32) 06/04/21 06:14 Anion Gap 11.0 (6-13) 06/04/21 06:14 BUN 28 mg/dL (6-20) H 06/04/21 06:14 Creatinine 0.9 mg/dL (0.6-1.2) 06/04/21 06:14 Estimated GFR (MDRD) 85 (>89) L 06/04/21 06:14 Glucose 109 mg/dL (70-100) H 06/04/21 06:14 Estimat Average Glucose 108 mg/dL (70-100) H 06/02/21 06:57 Hemoglobin A1c % 5.4 % (4.27-6.07) 06/02/21 06:57 Calcium 9.8 mg/dL (8.5-10.3) 06/04/21 06:14 Magnesium 2.0 mg/dL (1.7-2.8) 06/03/21 06:00 Troponin I High Sens 14.6 ng/L (2.3-19.7) 06/03/21 08:50 Triglycerides 69 mg/dL (-149) 06/02/21 06:57 Cholesterol 188 mg/dL (-199) 06/02/21 06:57 LDL Cholesterol, Calc 122 mg/dL (-129) 06/02/21 06:57 VLDL Cholesterol 14 mg/dL 06/02/21 06:57 HDL Cholesterol 52 mg/dL (60-) L 06/02/21 06:57 LDL/HDL Ratio 2.3 (<3.6) 06/02/21 06:57 Cholesterol/HDL Ratio 3.6 (<5.0) 06/02/21 06:57 Nasal Adenovirus (PCR) NOT DETECTED 06/01/21 10:24 Nasal B. parapertussis DNA (PCR) NOT DETECTED 06/01/21 10:24 Nasal Coronavir 229E PCR NOT DETECTED 06/01/21 10:24 Nasal Coronavir HKU1 PCR NOT DETECTED 06/01/21 10:24 Nasal Coronavir NL63 PCR NOT DETECTED 06/01/21 10:24 Nasal Coronavir OC43 PCR NOT DETECTED 06/01/21 10:24 Nasal Enterovir/Rhinovir PCR NOT DETECTED 06/01/21 10:24 Nasal Influenza B PCR NOT DETECTED 06/01/21 10:24 Nasal Influenza A PCR NOT DETECTED 06/01/21 10:24 Nasal Parainfluen 1 PCR NOT DETECTED 06/01/21 10:24 Nasal Parainfluen 2 PCR NOT DETECTED 06/01/21 10:24 Nasal Parainfluen 3 PCR NOT DETECTED 06/01/21 10:24 Nasal Parainfluen 4 PCR NOT DETECTED 06/01/21 10:24 Nasal RSV (PCR) NOT DETECTED 06/01/21 10:24 Nasal B.pertussis DNA PCR NOT DETECTED 06/01/21 10:24 Nasal C.pneumoniae (PCR) NOT DETECTED 06/01/21 10:24 Chele Human Metapneumo PCR NOT DETECTED 06/01/21 10:24 Nasal M.pneumoniae (PCR) NOT DETECTED 06/01/21 10:24 Nasal SARS-CoV-2 (PCR) NOT DETECTED 06/01/21 10:24 ABX Reporting Has patient been on IV antibiotics over the past 48 hours?: No
[2021-06-04] MEDS: LORATADINE 10 MG TABLET PO SCH (09:20)
[2021-06-04] MEDS: ASPIRIN EC 81 MG TABLET PO SCH (09:20)
[2021-06-04] MEDS: PRENATAL VITAMIN TABLET PO SCH (09:20)
[2021-06-04] MEDS: METOPROLOL SUCCINATE 25 MG TABLET PO SCH (09:21)
[2021-06-04] MEDS: ACETAMINOPHEN 325 MG TABLET PO PRN ×3 (09:27→19:15)
[2021-06-04] MEDS: traZODone 50 MG TABLET PO SCH (22:29)
[2021-06-04] MEDS: ATORVASTATIN 40 MG TABLET PO SCH (22:29)
[2021-06-05] MEDS: SODIUM CHLORIDE FLUSH 0.9% 10 ML SYRINGE IVP SCH ×3 (01:20→16:41)
[2021-06-05 06:49] LABS: BASOPHILS # (AUTO) 0.1 10^3/uL (0.0-0.1); BASOPHILS % (AUTO) 1.3 %; EOSINOPHILS # (AUTO) 0.9 10^3/uL (0.0-0.7); EOSINOPHILS % (AUTO) 10.9 %; HGB - HEMOGLOBIN 11.8 g/dL (14.0-18.0); LYMPHOCYTES % (AUTO) 25.8 %; MEAN CORPUSCULAR HEMOGLOBIN 29.1 pg (27.0-31.0); MEAN CORPUSCULAR HGB CONC 32.8 g/dL (32.0-36.0); MEAN CORPUSCULAR VOLUME 88.7 fL (80.0-94.0); MEAN PLATELET VOLUME 10.1 fL (7.4-11.4); MONOCYTES # (AUTO) 0.7 10^3/uL (0.0-1.0); MONOCYTES % (AUTO) 9.4 %; NEUTROPHILS # (AUTO) 4.1 10^3/uL (1.5-6.6); NEUTROPHILS % (AUTO) 52.2 %; PLT - PLATELET COUNT 353 10^3/uL (130-450); RED BLOOD COUNT 4.06 10^6/uL (4.70-6.10); RED CELL DISTRIBUTION WIDTH 14.5 % (12.0-15.0); WHITE BLOOD COUNT 7.9 x10^3/uL (4.8-10.8)
[2021-06-05 07:02] LABS: CALCIUM 9.5 mg/dL (8.5-10.3); POTASSIUM 4.4 mmol/L (3.5-5.0)
--- NOTE | 2021-06-05 08:17 | PROVIDER PROGRESS NOTE ---
Assessment/Plan - Problem List (1) Cerebrovascular accident (CVA) Assessment/Plan: Brain MRI showed a tiny acute infarct in the right thalamus and posterior limb of the internal capsule. On baby aspirin daily. Atorvastatin 40 mg p.o. every afternoon. Hemoglobin A1c was 5.4. Amlodipine discontinued. Metoprolol succinate 25 mg p.o. daily initiated. Hydralazine 10 mg IV every 6 hours as needed for systolic blood pressure greater than 160. PT/OT. SNF recommended by PT. Social work to assist with placement. (2) Hypertension Assessment/Plan: Amlodipine discontinued. Metoprolol succinate 25 mg p.o. daily initiated. Hydralazine 10 mg IV every 6 hours as needed for systolic blood pressure greater than 160 (3) Nonsustained ventricular tachycardia Assessment/Plan: Patient asymptomatic at time of occurrence. However this has recurred 3 times while he was trying to go to the bathroom at the time. EKG was unremarkable. Troponin was 12.5 and 14.6. Continue to monitor on telemetry 2D echocardiogram was negative for blood clot. EF was about 50 to 55%. It also showed akinetic apex. As a result plan will be to do a nuclear stress test on 06/07/2020. - Current Meds Current Meds: Current Medications Generic Name Dose Route Start Last Admin Trade Name Freq PRN Reason Stop Dose Admin Acetaminophen 650 mg 06/01/21 13:20 06/04/21 19:15 Acetaminophen 325 Mg Tablet PO 650 mg Q4HR PRN Administration Pain 1 to 4 Aspirin 81 mg 06/02/21 09:00 06/04/21 09:20 Aspirin Ec 81 Mg Tablet PO 81 mg DAILY SANIYA Administration Atorvastatin Calcium 40 mg 06/01/21 21:00 06/04/21 22:29 Atorvastatin 40 Mg Tablet PO 40 mg QPM SANIYA Administration Hydralazine HCl 10 mg 06/02/21 07:14 06/03/21 00:11 Hydralazine Inj 20 Mg/Ml Vial IVP 10 mg Q6H PRN Administration PER PHYSICIAN ORDER Loratadine 10 mg 06/04/21 09:00 06/04/21 09:20 Loratadine 10 Mg Tablet PO 10 mg DAILY SANIYA Administration Metoprolol Succinate 25 mg 06/04/21 09:00 06/04/21 09:21 Metoprolol Succinate 25 Mg Tablet PO 25 mg DAILY SANIYA Administration Multivit/Folic Acid/Iron 1 tab 06/02/21 09:00 06/04/21 09:20 Vitamin Tablet PO 1 tab DAILY SANIYA Administration Sodium Chloride 10 ml 06/01/21 17:00 06/05/21 01:20 Sodium Chloride Flush 0.9% 10 Ml Syringe IVP 10 ml 0100,0900,1700 SANIYA Administration Trazodone HCl 50 mg 06/03/21 21:00 06/04/21 22:29 Trazodone 50 Mg Tablet PO 50 mg QPM SANIYA Administration - Lab Result Fish Bone Diagrams: 06/05/21 06:18 06/05/21 06:18 - Additional Planning My Orders: My Active Orders 06/04/21 09:00 Metoprolol Succinate [Toprol Xl] 25 mg PO DAILY 06/06/21 00:01 NPO except Meds at Midnight [DIET] 06/06/21 05:00 BMP - BASIC METABOLIC PANEL [CHEM] DAILYLAB CBC - COMP BLD CT W/AUTO DIFF [HEME] DAILYLAB 06/06/21 10:25 Stress Test Prep [RC] .ONCE 06/07/21 09:00 Myocardial Perfusion STR/RST [NM] Routine Subjective - Subjective Patient Reports: Other (Patient was resting comfortably in bed at time of exam. He denied any complaints. It was reported that he had decreased urine output last night.) Objective Vital Signs: Vital Signs - 24 hr 06/04/21 06/04/21 06/04/21 08:55 12:43 15:42 Temperature 36.3 C L 36.3 C L Heart Rate [ 111 H 82 Brachial] Heart Rate [ 91 Monitoring electrodes] Respiratory 18 18 Rate Blood Pressure [Left Brachial artery] Blood Pressure [Left Radial artery] Blood Pressure 102/75 123/93 H 172/90 H [Right Brachial artery] O2 Saturation 97 97 06/04/21 06/04/21 06/05/21 18:00 20:21 00:43 Temperature 36.3 C L 36.4 C L Heart Rate [ 64 67 Brachial] Heart Rate [ Monitoring electrodes] Respiratory 16 17 Rate Blood Pressure 137/72 H [Left Brachial artery] Blood Pressure 151/68 H [Left Radial artery] Blood Pressure 155/80 H [Right Brachial artery] O2 Saturation 96 95 06/05/21 06/05/21 06:39 07:30 Temperature 36.5 C 36.4 C L Heart Rate [ 69 87 Brachial] Heart Rate [ Monitoring electrodes] Respiratory 16 16 Rate Blood Pressure [Left Brachial artery] Blood Pressure [Left Radial artery] Blood Pressure 159/79 H 157/90 H [Right Brachial artery] O2 Saturation 99 99 Oxygen O2 Source Room air I&O (Last 24 Hrs): Intake and Output Totals x24h 06/03/21 06/04/21 06/05/21 23:59 23:59 23:59 Intake Total 620 1210 50 Output Total 125 0 Balance 620 1085 50 Comments/Notes: General: Alert, Oriented x3 HEENT: PERRLA, EOMI Neck: Supple, No JVD Neuro: Alert, Focal Deficits (left sided weakness), Oriented Times 3 Cardiovascular: Regular rate, Normal S1, Normal S2, No murmurs Respiratory: Chest non-tender, No respiratory distress, Breath sounds nml Abdomen: Normal bowel sounds, Soft, No tenderness, No masses Extremities: No clubbing, No cyanosis, No edema Skin: No rashes, No breakdown, No significant lesion - Results Results: Laboratory Results WBC 7.9 x10^3/uL (4.8-10.8) 06/05/21 06:18 RBC 4.06 10^6/uL (4.70-6.10) L 06/05/21 06:18 Hgb 11.8 g/dL (14.0-18.0) L 06/05/21 06:18 Hct 36.0 % (42.0-52.0) L 06/05/21 06:18 MCV 88.7 fL (80.0-94.0) 06/05/21 06:18 MCH 29.1 pg (27.0-31.0) 06/05/21 06:18 MCHC 32.8 g/dL (32.0-36.0) 06/05/21 06:18 RDW 14.5 % (12.0-15.0) 06/05/21 06:18 Plt Count 353 10^3/uL (130-450) 06/05/21 06:18 MPV 10.1 fL (7.4-11.4) 06/05/21 06:18 Neut # (Auto) 4.1 10^3/uL (1.5-6.6) 06/05/21 06:18 Lymph # (Auto) 2.0 10^3/uL (1.5-3.5) 06/05/21 06:18 [place] # (Auto) 0.7 10^3/uL (0.0-1.0) 06/05/21 06:18 Eos # (Auto) 0.9 10^3/uL (0.0-0.7) H 06/05/21 06:18 Baso # (Auto) 0.1 10^3/uL (0.0-0.1) 06/05/21 06:18 Absolute Nucleated RBC 0.00 x10^3/uL 06/05/21 06:18 Nucleated RBC % 0.0 /100WBC 06/05/21 06:18 PT 11.5 secs (9.9-12.6) 06/01/21 08:17 INR 1.0 (0.8-1.2) 06/01/21 08:17 Sodium 140 mmol/L (135-145) 06/05/21 06:18 Potassium 4.4 mmol/L (3.5-5.0) 06/05/21 06:18 Chloride 103 mmol/L (101-111) 06/05/21 06:18 Carbon Dioxide 28 mmol/L (21-32) 06/05/21 06:18 Anion Gap 9.0 (6-13) 06/05/21 06:18 BUN 36 mg/dL (6-20) H 06/05/21 06:18 Creatinine 1.0 mg/dL (0.6-1.2) 06/05/21 06:18 Estimated GFR (MDRD) 75 (>89) L 06/05/21 06:18 Glucose 105 mg/dL (70-100) H 06/05/21 06:18 Estimat Average Glucose 108 mg/dL (70-100) H 06/02/21 06:57 Hemoglobin A1c % 5.4 % (4.27-6.07) 06/02/21 06:57 Calcium 9.5 mg/dL (8.5-10.3) 06/05/21 06:18 Magnesium 2.0 mg/dL (1.7-2.8) 06/03/21 06:00 Troponin I High Sens 14.6 ng/L (2.3-19.7) 06/03/21 08:50 Triglycerides 69 mg/dL (-149) 06/02/21 06:57 Cholesterol 188 mg/dL (-199) 06/02/21 06:57 LDL Cholesterol, Calc 122 mg/dL (-129) 06/02/21 06:57 VLDL Cholesterol 14 mg/dL 06/02/21 06:57 HDL Cholesterol 52 mg/dL (60-) L 06/02/21 06:57 LDL/HDL Ratio 2.3 (<3.6) 06/02/21 06:57 Cholesterol/HDL Ratio 3.6 (<5.0) 06/02/21 06:57 Nasal Adenovirus (PCR) NOT DETECTED 06/01/21 10:24 Nasal B. parapertussis DNA (PCR) NOT DETECTED 06/01/21 10:24 Nasal Coronavir 229E PCR NOT DETECTED 06/01/21 10:24 Nasal Coronavir HKU1 PCR NOT DETECTED 06/01/21 10:24 Nasal Coronavir NL63 PCR NOT DETECTED 06/01/21 10:24 Nasal Coronavir OC43 PCR NOT DETECTED 06/01/21 10:24 Nasal Enterovir/Rhinovir PCR NOT DETECTED 06/01/21 10:24 Nasal Influenza B PCR NOT DETECTED 06/01/21 10:24 Nasal Influenza A PCR NOT DETECTED 06/01/21 10:24 Nasal Parainfluen 1 PCR NOT DETECTED 06/01/21 10:24 Nasal Parainfluen 2 PCR NOT DETECTED 06/01/21 10:24 Nasal Parainfluen 3 PCR NOT DETECTED 06/01/21 10:24 Nasal Parainfluen 4 PCR NOT DETECTED 06/01/21 10:24 Nasal RSV (PCR) NOT DETECTED 06/01/21 10:24 Nasal B.pertussis DNA PCR NOT DETECTED 06/01/21 10:24 Nasal C.pneumoniae (PCR) NOT DETECTED 06/01/21 10:24 Chele Human Metapneumo PCR NOT DETECTED 06/01/21 10:24 Nasal M.pneumoniae (PCR) NOT DETECTED 06/01/21 10:24 Nasal SARS-CoV-2 (PCR) NOT DETECTED 06/01/21 10:24 ABX Reporting Has patient been on IV antibiotics over the past 48 hours?: No
[2021-06-05] MEDS: PRENATAL VITAMIN TABLET PO SCH (08:55)
[2021-06-05] MEDS: ASPIRIN EC 81 MG TABLET PO SCH (08:55)
[2021-06-05] MEDS: LORATADINE 10 MG TABLET PO SCH (08:55)
[2021-06-05] MEDS: METOPROLOL SUCCINATE 25 MG TABLET PO SCH (09:02)
[2021-06-05] MEDS: ACETAMINOPHEN 325 MG TABLET PO PRN ×2 (11:53→19:02)
[2021-06-05] MEDS: SENNA 8.6 MG TABLET PO SCH (13:07)
[2021-06-05] MEDS: polyethylene glycoL 3350 17 GM PACKET PO SCH (13:07)
[2021-06-05] MEDS: hydrALAZINE INJ 20 MG/ML VIAL IVP PRN (16:43)
[2021-06-05] MEDS: ATORVASTATIN 40 MG TABLET PO SCH (20:29)
[2021-06-05] MEDS: traZODone 50 MG TABLET PO SCH (20:29)
[2021-06-05] MEDS ORDERED: diphenhydrAMINE 25 MG CAPSULE PO STA (20:31)
[2021-06-06] MEDS: SODIUM CHLORIDE FLUSH 0.9% 10 ML SYRINGE IVP SCH ×3 (00:27→17:35)
[2021-06-06 05:50] LABS: BASOPHILS # (AUTO) 0.2 10^3/uL (0.0-0.1); BASOPHILS % (AUTO) 1.5 %; EOSINOPHILS # (AUTO) 0.8 10^3/uL (0.0-0.7); EOSINOPHILS % (AUTO) 7.7 %; HCT - HEMATOCRIT 39.7 % (42.0-52.0); HGB - HEMOGLOBIN 12.9 g/dL (14.0-18.0); LYMPHOCYTES % (AUTO) 28.7 %; MEAN CORPUSCULAR HEMOGLOBIN 29.1 pg (27.0-31.0); MEAN CORPUSCULAR HGB CONC 32.5 g/dL (32.0-36.0); MEAN CORPUSCULAR VOLUME 89.6 fL (80.0-94.0); MEAN PLATELET VOLUME 9.9 fL (7.4-11.4); MONOCYTES # (AUTO) 0.8 10^3/uL (0.0-1.0); MONOCYTES % (AUTO) 7.1 %; NEUTROPHILS # (AUTO) 5.8 10^3/uL (1.5-6.6); NEUTROPHILS % (AUTO) 54.7 %; PLT - PLATELET COUNT 396 10^3/uL (130-450); RED BLOOD COUNT 4.43 10^6/uL (4.70-6.10); RED CELL DISTRIBUTION WIDTH 14.5 % (12.0-15.0); WHITE BLOOD COUNT 10.6 x10^3/uL (4.8-10.8)
[2021-06-06 05:54] LABS: CREATININE 1.1 mg/dL (0.6-1.2); POTASSIUM 4.4 mmol/L (3.5-5.0)
--- NOTE | 2021-06-06 08:32 | PROVIDER PROGRESS NOTE ---
Assessment/Plan - Problem List (1) Cerebrovascular accident (CVA) Assessment/Plan: Brain MRI showed a tiny acute infarct in the right thalamus and posterior limb of the internal capsule. On baby aspirin daily. Atorvastatin 40 mg p.o. every afternoon. Hemoglobin A1c was 5.4. Amlodipine discontinued. Metoprolol succinate 25 mg p.o. daily initiated. Hydralazine 10 mg IV every 6 hours as needed for systolic blood pressure greater than 160. PT/OT. SNF recommended by PT. Social work to assist with placement. (2) Hypertension Assessment/Plan: Amlodipine discontinued. Metoprolol succinate 25 mg p.o. daily initiated. Hydralazine 10 mg IV every 6 hours as needed for systolic blood pressure greater than 160 (3) Nonsustained ventricular tachycardia Assessment/Plan: Patient asymptomatic at time of occurrence. However this has recurred 3 times while he was trying to go to the bathroom at the time. EKG was unremarkable. Troponin was 12.5 and 14.6. Continue to monitor on telemetry 2D echocardiogram was negative for blood clot. EF was about 50 to 55%. It also showed akinetic apex. As a result plan will be to do a nuclear stress test on 06/07/2020. - Current Meds Current Meds: Current Medications Generic Name Dose Route Start Last Admin Trade Name Freq PRN Reason Stop Dose Admin Acetaminophen 650 mg 06/01/21 13:20 06/05/21 19:02 Acetaminophen 325 Mg Tablet PO 650 mg Q4HR PRN Administration Pain 1 to 4 Aspirin 81 mg 06/02/21 09:00 06/05/21 08:55 Aspirin Ec 81 Mg Tablet PO 81 mg DAILY SANIYA Administration Atorvastatin Calcium 40 mg 06/01/21 21:00 06/05/21 20:29 Atorvastatin 40 Mg Tablet PO 40 mg QPM SANIYA Administration Hydralazine HCl 10 mg 06/02/21 07:14 06/05/21 16:43 Hydralazine Inj 20 Mg/Ml Vial IVP 10 mg Q6H PRN Administration PER PHYSICIAN ORDER Loratadine 10 mg 06/04/21 09:00 06/05/21 08:55 Loratadine 10 Mg Tablet PO 10 mg DAILY SANIYA Administration Metoprolol Succinate 25 mg 06/04/21 09:00 06/05/21 09:02 Metoprolol Succinate 25 Mg Tablet PO 25 mg DAILY SANIYA Administration Polyethylene Glycol 17 gm 06/05/21 13:00 06/05/21 13:07 Polyethylene Glycol 3350 17 Gm Packet PO 17 gm DAILY SANIYA Administration Multivit/Folic Acid/Iron 1 tab 06/02/21 09:00 06/05/21 08:55 Vitamin Tablet PO 1 tab DAILY SANIYA Administration Senna 8.6 - 17.2 mg 06/05/21 13:00 06/05/21 13:07 Senna 8.6 Mg Tablet PO 8.6 mg DAILY SANIYA Administration Sodium Chloride 10 ml 06/01/21 17:00 06/06/21 00:27 Sodium Chloride Flush 0.9% 10 Ml Syringe IVP 10 ml 0100,0900,1700 SANIYA Administration Trazodone HCl 50 mg 06/03/21 21:00 06/05/21 20:29 Trazodone 50 Mg Tablet PO 50 mg QPM SANIYA Administration - Lab Result Fish Bone Diagrams: 06/06/21 05:30 06/06/21 05:30 - Additional Planning My Orders: My Active Orders 06/05/21 13:00 Senna [Senokot] 8.6 - 17.2 mg PO DAILY polyethylene glycoL 3350 [Miralax] 17 gm PO DAILY 06/06/21 10:25 Stress Test Prep [RC] .ONCE 06/07/21 00:01 NPO except Meds at Midnight [DIET] 06/07/21 09:00 Myocardial Perfusion STR/RST [NM] Routine Subjective - Subjective Patient Reports: Other (Was working with physical therapy at the time of the visit today. Denied any complaints. Appeared to be doing well with minimal assist. Activities.) Objective Vital Signs: Vital Signs - 24 hr 06/05/21 06/05/21 06/05/21 12:33 16:06 16:44 Temperature 36.4 C L 36.4 C L Heart Rate [ 80 82 Brachial] Heart Rate [ 81 Monitoring electrodes] Respiratory 18 16 Rate Blood Pressure Blood Pressure 207/89 H [Left Brachial artery] Blood Pressure 148/65 H [Right Brachial artery] O2 Saturation 98 98 06/05/21 06/05/21 06/05/21 16:48 16:54 17:13 Temperature Heart Rate [ Brachial] Heart Rate [ 111 H 105 H Monitoring electrodes] Respiratory Rate Blood Pressure 115/72 Blood Pressure 198/86 H 182/81 H [Left Brachial artery] Blood Pressure [Right Brachial artery] O2 Saturation 06/05/21 06/05/21 06/05/21 17:53 18:00 20:19 Temperature 36.5 C Heart Rate [ 84 Brachial] Heart Rate [ Monitoring electrodes] Respiratory 18 Rate Blood Pressure Blood Pressure 107/80 115/72 [Left Brachial artery] Blood Pressure 165/76 H [Right Brachial artery] O2 Saturation 95 06/06/21 06/06/21 06/06/21 00:29 05:38 07:51 Temperature 36.6 C 36.5 C 36.3 C L Heart Rate [ 89 73 78 Brachial] Heart Rate [ Monitoring electrodes] Respiratory 18 16 18 Rate Blood Pressure Blood Pressure 147/75 H 133/75 H 168/74 H [Left Brachial artery] Blood Pressure [Right Brachial artery] O2 Saturation 96 97 98 Oxygen O2 Source Room air I&O (Last 24 Hrs): Intake and Output Totals x24h 06/04/21 06/05/21 06/06/21 23:59 23:59 23:59 Intake Total 1210 1160 Output Total 125 400 Balance 1085 760 Comments/Notes: General: Alert, Oriented x3 HEENT: PERRLA, EOMI Neck: Supple, No JVD Neuro: Alert, Focal Deficits (left sided weakness), Oriented Times 3 Cardiovascular: Regular rate, Normal S1, Normal S2, No murmurs Respiratory: Chest non-tender, No respiratory distress, Breath sounds nml Abdomen: Normal bowel sounds, Soft, No tenderness, No masses Extremities: No clubbing, No cyanosis, No edema Skin: No rashes, No breakdown, No significant lesion - Results Results: Laboratory Results WBC 10.6 x10^3/uL (4.8-10.8) 06/06/21 05:30 RBC 4.43 10^6/uL (4.70-6.10) L 06/06/21 05:30 Hgb 12.9 g/dL (14.0-18.0) L 06/06/21 05:30 Hct 39.7 % (42.0-52.0) L 06/06/21 05:30 MCV 89.6 fL (80.0-94.0) 06/06/21 05:30 MCH 29.1 pg (27.0-31.0) 06/06/21 05:30 MCHC 32.5 g/dL (32.0-36.0) 06/06/21 05:30 RDW 14.5 % (12.0-15.0) 06/06/21 05:30 Plt Count 396 10^3/uL (130-450) 06/06/21 05:30 MPV 9.9 fL (7.4-11.4) 06/06/21 05:30 Neut # (Auto) 5.8 10^3/uL (1.5-6.6) 06/06/21 05:30 Lymph # (Auto) 3.0 10^3/uL (1.5-3.5) 06/06/21 05:30 [place] # (Auto) 0.8 10^3/uL (0.0-1.0) 06/06/21 05:30 Eos # (Auto) 0.8 10^3/uL (0.0-0.7) H 06/06/21 05:30 Baso # (Auto) 0.2 10^3/uL (0.0-0.1) H 06/06/21 05:30 Absolute Nucleated RBC 0.00 x10^3/uL 06/06/21 05:30 Nucleated RBC % 0.0 /100WBC 06/06/21 05:30 PT 11.5 secs (9.9-12.6) 06/01/21 08:17 INR 1.0 (0.8-1.2) 06/01/21 08:17 Sodium 137 mmol/L (135-145) 06/06/21 05:30 Potassium 4.4 mmol/L (3.5-5.0) 06/06/21 05:30 Chloride 97 mmol/L (101-111) L 06/06/21 05:30 Carbon Dioxide 29 mmol/L (21-32) 06/06/21 05:30 Anion Gap 11.0 (6-13) 06/06/21 05:30 BUN 40 mg/dL (6-20) H 06/06/21 05:30 Creatinine 1.1 mg/dL (0.6-1.2) 06/06/21 05:30 Estimated GFR (MDRD) 68 (>89) L 06/06/21 05:30 Glucose 107 mg/dL (70-100) H 06/06/21 05:30 Estimat Average Glucose 108 mg/dL (70-100) H 06/02/21 06:57 Hemoglobin A1c % 5.4 % (4.27-6.07) 06/02/21 06:57 Calcium 10.0 mg/dL (8.5-10.3) 06/06/21 05:30 Magnesium 2.0 mg/dL (1.7-2.8) 06/03/21 06:00 Troponin I High Sens 14.6 ng/L (2.3-19.7) 06/03/21 08:50 Triglycerides 69 mg/dL (-149) 06/02/21 06:57 Cholesterol 188 mg/dL (-199) 06/02/21 06:57 LDL Cholesterol, Calc 122 mg/dL (-129) 06/02/21 06:57 VLDL Cholesterol 14 mg/dL 06/02/21 06:57 HDL Cholesterol 52 mg/dL (60-) L 06/02/21 06:57 LDL/HDL Ratio 2.3 (<3.6) 06/02/21 06:57 Cholesterol/HDL Ratio 3.6 (<5.0) 06/02/21 06:57 Nasal Adenovirus (PCR) NOT DETECTED 06/01/21 10:24 Nasal B. parapertussis DNA (PCR) NOT DETECTED 06/01/21 10:24 Nasal Coronavir 229E PCR NOT DETECTED 06/01/21 10:24 Nasal Coronavir HKU1 PCR NOT DETECTED 06/01/21 10:24 Nasal Coronavir NL63 PCR NOT DETECTED 06/01/21 10:24 Nasal Coronavir OC43 PCR NOT DETECTED 06/01/21 10:24 Nasal Enterovir/Rhinovir PCR NOT DETECTED 06/01/21 10:24 Nasal Influenza B PCR NOT DETECTED 06/01/21 10:24 Nasal Influenza A PCR NOT DETECTED 06/01/21 10:24 Nasal Parainfluen 1 PCR NOT DETECTED 06/01/21 10:24 Nasal Parainfluen 2 PCR NOT DETECTED 06/01/21 10:24 Nasal Parainfluen 3 PCR NOT DETECTED 06/01/21 10:24 Nasal Parainfluen 4 PCR NOT DETECTED 06/01/21 10:24 Nasal RSV (PCR) NOT DETECTED 06/01/21 10:24 Nasal B.pertussis DNA PCR NOT DETECTED 06/01/21 10:24 Nasal C.pneumoniae (PCR) NOT DETECTED 06/01/21 10:24 Chele Human Metapneumo PCR NOT DETECTED 06/01/21 10:24 Nasal M.pneumoniae (PCR) NOT DETECTED 06/01/21 10:24 Nasal SARS-CoV-2 (PCR) NOT DETECTED 06/01/21 10:24 ABX Reporting Has patient been on IV antibiotics over the past 48 hours?: No
[2021-06-06] MEDS: SENNA 8.6 MG TABLET PO SCH (08:58)
[2021-06-06] MEDS: PRENATAL VITAMIN TABLET PO SCH (08:58)
[2021-06-06] MEDS: ASPIRIN EC 81 MG TABLET PO SCH (08:58)
[2021-06-06] MEDS: LORATADINE 10 MG TABLET PO SCH (08:58)
[2021-06-06] MEDS: polyethylene glycoL 3350 17 GM PACKET PO SCH (08:58)
[2021-06-06] MEDS: METOPROLOL SUCCINATE 25 MG TABLET PO SCH (08:59)
[2021-06-06] MEDS: ACETAMINOPHEN 325 MG TABLET PO PRN ×2 (14:14→20:32)
[2021-06-06] MEDS: traZODone 50 MG TABLET PO SCH (20:34)
[2021-06-06] MEDS: ATORVASTATIN 40 MG TABLET PO SCH (20:34)
[2021-06-07] MEDS: SODIUM CHLORIDE FLUSH 0.9% 10 ML SYRINGE IVP SCH ×3 (01:21→20:45)
[2021-06-07 06:53] LABS: BASOPHILS # (AUTO) 0.1 10^3/uL (0.0-0.1); BASOPHILS % (AUTO) 1.5 %; EOSINOPHILS % (AUTO) 12.9 %; HCT - HEMATOCRIT 39.5 % (42.0-52.0); HGB - HEMOGLOBIN 12.7 g/dL (14.0-18.0); LYMPHOCYTES % (AUTO) 26.4 %; MEAN CORPUSCULAR HEMOGLOBIN 28.9 pg (27.0-31.0); MEAN CORPUSCULAR HGB CONC 32.2 g/dL (32.0-36.0); MEAN CORPUSCULAR VOLUME 89.8 fL (80.0-94.0); MONOCYTES # (AUTO) 0.6 10^3/uL (0.0-1.0); MONOCYTES % (AUTO) 7.6 %; NEUTROPHILS # (AUTO) 3.9 10^3/uL (1.5-6.6); NEUTROPHILS % (AUTO) 51.3 %; PLT - PLATELET COUNT 343 10^3/uL (130-450); RED CELL DISTRIBUTION WIDTH 14.6 % (12.0-15.0); WHITE BLOOD COUNT 7.5 x10^3/uL (4.8-10.8)
[2021-06-07 06:59] LABS: CALCIUM 9.5 mg/dL (8.5-10.3); POTASSIUM 4.4 mmol/L (3.5-5.0)
--- NOTE | 2021-06-07 12:03 | CARDIAC PROCEDURE NOTE ---
Stress Test Report Service Date: 06/07/21 Service Time: 12:00 Ordering Provider: Yasmeen Enriquez MD Indication for Test: Assess for inducible ischemia. Significant Medical History: -Mr Page reports a history of hypertension for several years, for which he was most recently treated with a 4 times a day antihypertensive agent, that he ran out of of prior to the beginning of the COVID pandemic. He has been unaware of interval blood pressures. He also has a history of colon cancer, apparently treated with local resection and not requiring adjuvant therapies. He has a history of longstanding balance issues, for which he uses a cane for ambulation. He reports chronic debility over the past 3 to 4 years, after a stay at a chronic care facility. -He summoned Medics and was transported to [facility] almost a week ago, after falling at home and experiencing leg weakness, that precluded his being able to arise. He was found to be hypertensive with clinical evidence of left hemiparesis and a brain CT showed findings consistent with a hypertensive right thalamic stroke. Cardiology was contacted a couple of days ago, after he was noted to have some long runs of asymptomatic wide-complex tachycardia, interpreted by the on-call Hospitalist physician as likely ventricular tachycardia. A bedside echo was performed that revealed apical akinesis with overall preserved left ventricular ejection fraction (estimated 50-55%). Serial troponins did not indicate an acute infarct however. The patient's activity level prior to hospitalization was quite limited due to his chronic conditions, but he denies experiencing any chest discomfort, heaviness or squeezing, marked exertional dyspnea, palpitations or lightheadedness at any time in the recent past Cardiac Risk Factors: Positive for hypertension and prior smoking, negative for known hyperlipidemia, diabetes or known family history of coronary heart disease. Type of Stress Test: Pharmacologic Stress Test with MPI Pharmacologic Agent: Lexiscan Procedure: -Pharmacologic Stress Test- After signing informed consent, the patient underwent resting 99Tc-Myoview SPECT imaging and then a pharmacologic stress test using Lexiscan. The test was terminated due to completing the protocol. Resting heart rate: 79 Peak heart rate: 108 Normal HR response. Resting BP: 195/97 Peak BP: 111/69 Hypertensive at rest with exaggerated BP response to vasodilator stress agent. Rhythm during testing: Sinus rhythm with occasional isolated premature atrial complexes. Symptoms: Transient sensation of heavy breathing and headache following Lexiscan injection. EKG at rest showed normal sinus rhythm with age indeterminate anteroseptal infarct pattern. EKG at peak stress showed no ischemia by EKG criteria. In Recovery heart rate decreased towards baseline with gradually increasing blood pressure (last was 112/74). Nuclear imaging was performed at rest and with stress. The images will be reported separately. Joel Lazar MD, was present throughout this pharmacologic stress study and supervised it in its entirety. Summary: 1) Abnormal resting EKG. 2) Adequate stress was likely achieved. 3) Exaggerated decrease in BP in response to pharmacologic stress agent. 4) No ischemic changes by EKG criteria were seen at peak stress. 5) Nuclear image interpretation is notable for possible fixed anteroseptal perfusion defect, without clear evidence of further stress-associated perfusion defects. Gated analysis indicates marked reduction in left ventricular ejection fraction following Lexiscan administration (EF 41%). See separate report for more detail. CONCLUSIONS: 1) Abnormal Lexiscan stress myocardial perfusion imaging study, with hypotensive response to Lexiscan and stress associated reduction in LV EF to 41%. Although there is no clear change in perfusion with stress, global ischemia due to 3- vessel coronary artery disease cannot be excluded. 2) Results discussed with Dr Shaw on the evening following the study. Recommendation made for dedicated echocardiogram as part of further evaluation; with prior description of apical akinesis it is possible that patient has experienced stress cardiomyopathy secondary to acute CVA and full re-assessment after several days may be helpful. 3) Further Cardiology evaluation may be reasonable, in consideration of stress MPI and echo results, patient's post acute CVA status and bed availability given Covid pandemic.
[2021-06-07] MEDS ORDERED: REGADENOSON 0.4 MG/5 ML SYRINGE IVP ONE ×2 (12:13→16:20)
--- NOTE | 2021-06-07 13:22 | PROVIDER PROGRESS NOTE ---
Subjective - Prog Note Date Prog Note Date: 06/07/21 - Subjective Subjective: Reports no chest pain or dyspnea. Still has left lower extremity weakness. Otherwise has good strength throughout.. Current Medications - Current Medications Current Medications: Active Medications Acetaminophen (Acetaminophen 325 Mg Tablet) 650 mg PO Q4HR PRN PRN Reason: Pain 1 to 4 Last Admin: 06/06/21 20:32 Dose: 650 mg Aspirin (Aspirin Ec 81 Mg Tablet) 81 mg PO DAILY [facility] Last Admin: 06/06/21 08:58 Dose: 81 mg Atorvastatin Calcium (Atorvastatin 40 Mg Tablet) 40 mg PO QPM [facility] Last Admin: 06/06/21 20:34 Dose: 40 mg Docusate Sodium (Docusate Sodium 250 Mg Capsule) 250 - 500 mg PO DAILY [facility] Hydralazine HCl (Hydralazine Inj 20 Mg/Ml Vial) 10 mg IVP Q6H PRN PRN Reason: PER PHYSICIAN ORDER Last Admin: 06/05/21 16:43 Dose: 10 mg Loratadine (Loratadine 10 Mg Tablet) 10 mg PO DAILY [facility] Last Admin: 06/06/21 08:58 Dose: 10 mg Lorazepam (Lorazepam 2 Mg/Ml Vial) 1 mg IVP Q30M PRN; Protocol PRN Reason: CIWA >8 Metoprolol Succinate (Metoprolol Succinate 25 Mg Tablet) 25 mg PO DAILY [facility] Last Admin: 06/06/21 08:59 Dose: 25 mg Ondansetron HCl (Ondansetron 4 Mg/2 Ml Vial) 4 mg IVP Q6HR PRN PRN Reason: Nausea / Vomiting Polyethylene Glycol (Polyethylene Glycol 3350 17 Gm Packet) 17 gm PO DAILY [facility] Last Admin: 06/06/21 08:58 Dose: 17 gm Multivit/Folic Acid/Iron ( Vitamin Tablet) 1 tab PO DAILY [facility] Last Admin: 06/06/21 08:58 Dose: 1 tab Senna (Senna 8.6 Mg Tablet) 8.6 - 17.2 mg PO DAILY [facility] Last Admin: 06/06/21 08:58 Dose: 8.6 mg Sodium Chloride (Sodium Chloride Flush 0.9% 10 Ml Syringe) 10 ml IVP PRN PRN PRN Reason: NEEDED PER PROVIDER ORDERS Sodium Chloride (Sodium Chloride Flush 0.9% 10 Ml Syringe) 10 ml IVP 0100,0900,1700 [facility] Last Admin: 06/07/21 09:36 Dose: 10 ml Trazodone HCl (Trazodone 50 Mg Tablet) 50 mg PO QPM [facility] Last Admin: 06/06/21 20:34 Dose: 50 mg Fexofenadine HCl 180 mg PO DAILY PRN 06/01/21 hydrOXYzine HCL [Hydroxyzine HCl] 10 mg PO BID PRN 06/01/21 Objective - Vital Signs/Intake & Output Reviewed Vital Signs: Yes Vital Signs: Vital Signs x48h Temp Pulse Pulse Resp BP BP Pulse Ox 06/07/21 09:00 36.6 C 63 16 164/68 H 98 06/07/21 06:33 36.6 C 56 L 17 150/71 H 99 Intake & Output: Intake & Output 06/04/21 06/05/21 06/06/21 06/07/21 23:59 23:59 23:59 23:59 Intake Total 1210 1160 1440 0 Output Total 125 400 0 500 Balance 1812 422 5114 -500 - Objective General Appearance: positive: No acute distress, Alert Eyes Bilateral: positive: Normal inspection, Conjunctivae nml ENT: positive: ENT inspection nml Neck: positive: Nml inspection Respiratory: positive: No respiratory distress. negative: Wheezes, Rales Cardiovascular: positive: Regular rate & rhythm, No murmur. negative: Tachycardia Abdomen: positive: Non-tender, No distention. negative: Tenderness Skin: positive: Warm, Dry Extremities: positive: No pedal edema Neurologic/Psychiatric: positive: Weakness (3 out of 5 motor strength in the left lower extremity. 5 out of 5 motor strength in all of the other extremities.). negative: Motor nml, Disoriented to person, Disoriented to place, Slurred/abnml speech - Lab Results Fish Bones: 06/07/21 06:25 06/07/21 06:25 Other Labs: Lab Results x24hrs 06/07/21 06/07/21 Range/Units 06:25 06:25 WBC 7.5 (4.8-10.8) x10^3/uL RBC 4.40 L (4.70-6.10) 10^6/uL Hgb 12.7 L (14.0-18.0) g/dL Hct 39.5 L (42.0-52.0) % MCV 89.8 (80.0-94.0) fL MCH 28.9 (27.0-31.0) pg MCHC 32.2 (32.0-36.0) g/dL RDW 14.6 (12.0-15.0) % Plt Count 343 (130-450) 10^3/uL MPV 10.0 (7.4-11.4) fL Neut # (Auto) 3.9 (1.5-6.6) 10^3/uL Lymph # (Auto) 2.0 (1.5-3.5) 10^3/uL [place] # (Auto) 0.6 (0.0-1.0) 10^3/uL Eos # (Auto) 1.0 H (0.0-0.7) 10^3/uL Baso # (Auto) 0.1 (0.0-0.1) 10^3/uL Absolute Nucleated RBC 0.00 x10^3/uL Nucleated RBC % 0.0 /100WBC Sodium 140 (135-145) mmol/L Potassium 4.4 (3.5-5.0) mmol/L Chloride 101 (101-111) mmol/L Carbon Dioxide 31 (21-32) mmol/L Anion Gap 8.0 (6-13) BUN 43 H (6-20) mg/dL Creatinine 1.0 (0.6-1.2) mg/dL Estimated GFR (MDRD) 75 L (>89) Glucose 102 H (70-100) mg/dL Calcium 9.5 (8.5-10.3) mg/dL Assessment/Plan - Problem List (1) Cerebrovascular accident (CVA) Impression: Brain MRI confirmed small acute infarct in the right thalamus and posterior limb of the internal capsule. He remains on aspirin and Lipitor. SNF has been pat mmended by physical therapy and we are awaiting placement depending on the stress test results. (2) Hypertension Impression: He is still hypertensive with systolics in the 150s. We will continue metoprolol and look to add amlodipine as well. (3) Nonsustained ventricular tachycardia Impression: He has had episodes of nonsustained ventricular tachycardia but has been doing well since initiation of a beta-jessee. Preliminary echocardiogram did suggest hypokinesis of the apex and so we have ordered a nuclear stress test which was obtained today. If this suggests no ischemia then he can be discharged to SNF. If there is evidence of ischemia then he will need cardiac evaluation.
[2021-06-07] MEDS: polyethylene glycoL 3350 17 GM PACKET PO SCH (14:38)
[2021-06-07] MEDS: PRENATAL VITAMIN TABLET PO SCH (14:40)
[2021-06-07] MEDS: DOCUSATE SODIUM 250 MG CAPSULE PO SCH ×2 (14:40→14:47)
[2021-06-07] MEDS: SENNA 8.6 MG TABLET PO SCH (14:41)
[2021-06-07] MEDS: METOPROLOL SUCCINATE 25 MG TABLET PO SCH (14:41)
[2021-06-07] MEDS: LORATADINE 10 MG TABLET PO SCH (14:41)
[2021-06-07] MEDS: ASPIRIN EC 81 MG TABLET PO SCH (14:43)
--- NOTE | 2021-06-07 17:12 | Nuclear Medicine Report ---
PROCEDURE: Rest and exercise myocardial perfusion SPECT with gated imaging and ejection fraction INDICATIONS: non-sustained vtach RADIOPHARMACEUTICAL: 14.8 mCi Tc-99m Myoview IV at rest and 40.4 mCi Tc-99m Myoview IV at peak exerc ise. [id number] was performed. TECHNIQUE: Radiopharmaceutical was injected at peak stress test, and also at rest. SPECT images wer e obtained. SPECT myocardial perfusion images were displayed in short axis, horizontal long axis, an d vertical long axis views. Gated images were reviewed using Auto[employer] software. COMPARISON: None available. FINDINGS: Raw data: There is good myocardial labeling by radiotracer. No significant motion artifacts. Lung- to-heart ratio is 0.29 (normal is less than 0.46 for tetrafosmin tracer). Left ventricle function: Gated images demonstrate normal left ventricle wall thickening. There is gl obal left ventricular hypokinesis during stress phase of the study appears resolved during the rest p hase of the study. No transient ischemic dilation; TID is 0.80 (normal less than 1.30). The left matt tricle resting end-diastolic volume is 51 mL. Left ventricle stress ejection fraction is 41%; normal values are above 45%. Myocardial perfusion: There is normal distribution of activity in the left and right ventricular latoya cardium. There is a subtle fixed perfusion defect involving the anteroseptal wall which could repres ent attenuation artifact or prior infarct. No reversible perfusion defects. IMPRESSION: 1. Small, subtle fixed perfusion defect involving the anteroseptal wall which could represent attenua tion artifact or prior infarct. No reversible perfusion defects identified to suggest ischemia. 2. Abnormal left ventricular function during the stress phase of the study. There is left ventricular hypokinesis with abnormal stress LVEF of 41%. Finding is nonspecific but may be related to global co ronary artery disease. Recommend cardiology consultation and correlation with echocardiogram. Findings discussed with Dr. Shaw on 06/07/2021 at 1710 hours PST. PQRS ATTESTATIONS: Measure 322 - Is this imaging test primarily performed on a low-risk surgery patient for preoperative evaluation within 30 days preceding their low-risk non-cardiac surgery? Low-risk surgery is defined as cardiac or myocardial infarction less than 1%, including (but not limited to) endoscopic pr ocedures, superficial procedures, cataract surgery, and excisional breast surgery: Answer: No Measure 323 - Is this imaging test performed primarily for the monitoring of an asymptomatic patient who had percutaneous coronary intervention on the visit date or within 2 years of the visit date? An swer: No Measure 324 - Is this imaging test performed primarily for the initial detection and risk assessment on an asymptomatic, low coronary heart disease patient? Low CHD risk definition = clinicians should consider the maximum number of available patient factors used to estimate risk based on [place] (A TP III criteria), typically age, gender, diabetes, smoking status, and use of blood pressure medicati on, and integrate age appropriate estimates for missing elements, such as LDL or standard blood press ure. Answer: No Reviewed by: Kelley Bazzi MD, PhD on 06/07/2021 4:[address] [facility] Approved by: Kelley Bazzi MD, PhD on 06/07/2021 4:[address] [facility] Station ID: [id number]
[2021-06-07] MEDS: ACETAMINOPHEN 325 MG TABLET PO PRN (20:44)
[2021-06-07] MEDS: ATORVASTATIN 40 MG TABLET PO SCH (20:45)
[2021-06-07] MEDS: traZODone 50 MG TABLET PO SCH (20:45)
[2021-06-07] MEDS: diphenhydrAMINE 25 MG CAPSULE PO PRN (21:46)
[2021-06-08 06:20] LABS: BASOPHILS % (AUTO) 1.7 %; EOSINOPHILS % (AUTO) 13.3 %; HCT - HEMATOCRIT 37.3 % (42.0-52.0); HGB - HEMOGLOBIN 12.1 g/dL (14.0-18.0); LYMPHOCYTES % (AUTO) 28.4 %; MEAN CORPUSCULAR HGB CONC 32.4 g/dL (32.0-36.0); MEAN CORPUSCULAR VOLUME 89.4 fL (80.0-94.0); MEAN PLATELET VOLUME 9.7 fL (7.4-11.4); MONOCYTES % (AUTO) 7.2 %; NEUTROPHILS % (AUTO) 48.9 %; PLT - PLATELET COUNT 342 10^3/uL (130-450); RED BLOOD COUNT 4.17 10^6/uL (4.70-6.10); RED CELL DISTRIBUTION WIDTH 14.5 % (12.0-15.0); WHITE BLOOD COUNT 8.1 x10^3/uL (4.8-10.8)
[2021-06-08 06:26] LABS: ABNORMAL LYMPHS % (MANUAL) 0 %; BAND NEUTROPHILS % (MANUAL) 0 %; CALCIUM 9.2 mg/dL (8.5-10.3); POTASSIUM 4.2 mmol/L (3.5-5.0)
[2021-06-08 06:44] LABS: DIFFERENTIAL COMMENT MANUAL DIFFERENTIAL; EOSINOPHILS # (MANUAL) 1.9 10^3/uL (0-0.7); LYMPHOCYTES # (MANUAL) 2.1 10^3/uL (1.5-3.5); LYMPHOCYTES % (MANUAL) 26 %; MONOCYTES # (MANUAL) 0.2 10^3/uL (0.0-1.0); NEUTROPHILS # (MANUAL) 3.9 10^3/uL (1.5-6.6); PLATELET ESTIMATE, MANUAL NORMAL (130-450,000) (NORMAL); RBC MORPHOLOGY (MULTIPLE) NORMAL APPEARANCE (NORMAL)
[2021-06-08] MEDS: SENNA 8.6 MG TABLET PO SCH (08:08)
[2021-06-08] MEDS: polyethylene glycoL 3350 17 GM PACKET PO SCH (08:08)
[2021-06-08] MEDS: METOPROLOL SUCCINATE 25 MG TABLET PO SCH (08:09)
[2021-06-08] MEDS: amLODIPine 5 MG TABLET PO SCH (08:09)
[2021-06-08] MEDS: SODIUM CHLORIDE FLUSH 0.9% 10 ML SYRINGE IVP SCH ×3 (08:09→18:42)
[2021-06-08] MEDS: LORATADINE 10 MG TABLET PO SCH (08:09)
[2021-06-08] MEDS: PRENATAL VITAMIN TABLET PO SCH (08:09)
[2021-06-08] MEDS: ASPIRIN EC 81 MG TABLET PO SCH (08:09)
[2021-06-08] MEDS: DOCUSATE SODIUM 250 MG CAPSULE PO SCH (08:10)
[2021-06-08] MEDS: ACETAMINOPHEN 325 MG TABLET PO PRN ×3 (08:22→18:40)
--- NOTE | 2021-06-08 11:00 | PROVIDER PROGRESS NOTE ---
Subjective - Prog Note Date Prog Note Date: 06/08/21 - Subjective Subjective: He feels that his left lower extremity strength is improving. Denies any chest pain. He has been working with physical therapy and doing better each day. Current Medications - Current Medications Current Medications: Active Medications Acetaminophen (Acetaminophen 325 Mg Tablet) 650 mg PO Q4HR PRN PRN Reason: Pain 1 to 4 Last Admin: 06/08/21 14:16 Dose: 650 mg Amlodipine Besylate (Amlodipine 5 Mg Tablet) 5 mg PO DAILY [facility] Last Admin: 06/08/21 08:09 Dose: 5 mg Aspirin (Aspirin Ec 81 Mg Tablet) 81 mg PO DAILY [facility] Last Admin: 06/08/21 08:09 Dose: 81 mg Atorvastatin Calcium (Atorvastatin 40 Mg Tablet) 40 mg PO QPM [facility] Last Admin: 06/07/21 20:45 Dose: 40 mg Diphenhydramine HCl (Diphenhydramine 25 Mg Capsule) 25 mg PO Q4HR PRN PRN Reason: Allergy Symptoms Last Admin: 06/07/21 21:46 Dose: 25 mg Docusate Sodium (Docusate Sodium 250 Mg Capsule) 250 - 500 mg PO DAILY [facility] Last Admin: 06/08/21 08:10 Dose: Not Given Hydralazine HCl (Hydralazine Inj 20 Mg/Ml Vial) 10 mg IVP Q6H PRN PRN Reason: PER PHYSICIAN ORDER Last Admin: 06/05/21 16:43 Dose: 10 mg Loratadine (Loratadine 10 Mg Tablet) 10 mg PO DAILY [facility] Last Admin: 06/08/21 08:09 Dose: 10 mg Metoprolol Succinate (Metoprolol Succinate 25 Mg Tablet) 25 mg PO DAILY [facility] Last Admin: 06/08/21 08:09 Dose: 25 mg Ondansetron HCl (Ondansetron 4 Mg/2 Ml Vial) 4 mg IVP Q6HR PRN PRN Reason: Nausea / Vomiting Polyethylene Glycol (Polyethylene Glycol 3350 17 Gm Packet) 17 gm PO DAILY [facility] Last Admin: 06/08/21 08:08 Dose: 17 gm Multivit/Folic Acid/Iron ( Vitamin Tablet) 1 tab PO DAILY [facility] Last Admin: 06/08/21 08:09 Dose: 1 tab Senna (Senna 8.6 Mg Tablet) 8.6 - 17.2 mg PO DAILY [facility] Last Admin: 06/08/21 08:08 Dose: 8.6 mg Sodium Chloride (Sodium Chloride Flush 0.9% 10 Ml Syringe) 10 ml IVP PRN PRN PRN Reason: NEEDED PER PROVIDER ORDERS Sodium Chloride (Sodium Chloride Flush 0.9% 10 Ml Syringe) 10 ml IVP 0100,0900,1700 [facility] Last Admin: 06/08/21 08:10 Dose: 10 ml Trazodone HCl (Trazodone 50 Mg Tablet) 50 mg PO QPM [facility] Last Admin: 06/07/21 20:45 Dose: 50 mg Fexofenadine HCl 180 mg PO DAILY PRN 06/01/21 hydrOXYzine HCL [Hydroxyzine HCl] 10 mg PO BID PRN 06/01/21 Objective - Vital Signs/Intake & Output Reviewed Vital Signs: Yes Vital Signs: Vital Signs x48h Temp Pulse Resp BP Pulse Ox 06/08/21 08:12 36.3 C L 62 20 148/86 H 99 06/08/21 06:40 36.5 C 63 16 149/66 H 99 Intake & Output: Intake & Output 06/05/21 06/06/21 06/07/21 06/08/21 23:59 23:59 23:59 23:59 Intake Total 1160 1440 590 265 Output Total 400 0 800 275 Balance 760 1440 -210 -10 - Objective General Appearance: positive: No acute distress, Alert Eyes Bilateral: positive: Normal inspection, Conjunctivae nml ENT: positive: ENT inspection nml Neck: positive: Nml inspection Respiratory: positive: No respiratory distress. negative: Wheezes, Rales Cardiovascular: positive: Regular rate & rhythm. negative: Tachycardia Abdomen: positive: Non-tender, No distention. negative: Tenderness Skin: positive: Warm, Dry Extremities: positive: No pedal edema Neurologic/Psychiatric: positive: Sensation nml, Weakness (4 out of 5 motor strength in the left lower extremity. Improved.). negative: Disoriented to person, Disoriented to place - Lab Results Fish Bones: 06/09/21 06:21 06/09/21 06:21 Other Labs: Lab Results x24hrs 06/08/21 06/08/21 Range/Units 06:07 06:07 WBC 8.1 (4.8-10.8) x10^3/uL RBC 4.17 L (4.70-6.10) 10^6/uL Hgb 12.1 L (14.0-18.0) g/dL Hct 37.3 L (42.0-52.0) % MCV 89.4 (80.0-94.0) fL MCH 29.0 (27.0-31.0) pg MCHC 32.4 (32.0-36.0) g/dL RDW 14.5 (12.0-15.0) % Plt Count 342 (130-450) 10^3/uL MPV 9.7 (7.4-11.4) fL Neut # (Auto) Not Reportable Lymph # (Auto) Not Reportable [place] # (Auto) Not Reportable Eos # (Auto) Not Reportable Baso # (Auto) Not Reportable Absolute Nucleated RBC Not Reportable Total Counted 100 Band Neuts % (Manual) 0 (0 - 10) % Abnorm Lymph % (Manual) 0 % Nucleated RBC % Not Reportable Neutrophils # (Manual) 3.9 (1.5-6.6) 10^3/uL Lymphocytes # (Manual) 2.1 (1.5-3.5) 10^3/uL Monocytes # (Manual) 0.2 (0.0-1.0) 10^3/uL Eosinophils # (Manual) 1.9 H (0-0.7) 10^3/uL Basophils # (Manual) 0.0 (0-0.1) 10^3/uL Differential Comment MANUAL DIFFERENTIAL Platelet Estimate NORMAL (130-450,000) (NORMAL) RBC Morph Micro Appear NORMAL APPEARANCE (NORMAL) Sodium 138 (135-145) mmol/L Potassium 4.2 (3.5-5.0) mmol/L Chloride 100 L (101-111) mmol/L Carbon Dioxide 29 (21-32) mmol/L Anion Gap 9.0 (6-13) BUN 40 H (6-20) mg/dL Creatinine 1.0 (0.6-1.2) mg/dL Estimated GFR (MDRD) 75 L (>89) Glucose 99 (70-100) mg/dL Calcium 9.2 (8.5-10.3) mg/dL Assessment/Plan - Problem List (1) Cerebrovascular accident (CVA) Impression: He continues to have left lower extremity weakness. MRI confirmed 2 small infarcts. He is on aspirin and Lipitor. Has been no evidence of atrial fibrillation. The plan is to discharge him to SNF once he is accepted at a located within [facility]. Continue with PT and OT. (2) Abnormal stress test Impression: Myocardial perfusion imaging revealed a possible fixed defect in the anteroseptal wall although this could also be artifact. The concerning part of the myocardial perfusion imaging was the fact that his EF decreased to 41% with stress. I spoke with Dr. Zamorano of cardiology yesterday who recommended obtaining a repeat echocardiogram to assess the LV function. If there are wall motion abnormalities or reduced EF then he may benefit from cardiac evaluation on a more urgent basis. If his echo is unremarkable then this can likely be done on an outpatient basis. Nonetheless I will speak with cardiology once we have an echocardiogram report. In the interim we will continue the beta- jessee, aspirin, Lipitor. (3) Hypertension Impression: He remains hypertensive with systolic in the 150s. We have added amlodipine today in addition to the metoprolol. (4) Nonsustained ventricular tachycardia Impression: He has not had any episodes of V. tach over the past 4 8 hours. Continue with beta-jessee.
[2021-06-08] MEDS: traZODone 50 MG TABLET PO SCH (20:15)
[2021-06-08] MEDS: ATORVASTATIN 40 MG TABLET PO SCH (20:15)
[2021-06-09] MEDS: SODIUM CHLORIDE FLUSH 0.9% 10 ML SYRINGE IVP SCH ×3 (03:15→18:38)
[2021-06-09 06:37] LABS: BASOPHILS # (AUTO) 0.1 10^3/uL (0.0-0.1); BASOPHILS % (AUTO) 1.3 %; EOSINOPHILS # (AUTO) 1.2 10^3/uL (0.0-0.7); HCT - HEMATOCRIT 38.1 % (42.0-52.0); HGB - HEMOGLOBIN 12.2 g/dL (14.0-18.0); LYMPHOCYTES # (AUTO) 2.4 10^3/uL (1.5-3.5); MEAN CORPUSCULAR VOLUME 90.5 fL (80.0-94.0); MONOCYTES # (AUTO) 0.7 10^3/uL (0.0-1.0); MONOCYTES % (AUTO) 7.8 %; NEUTROPHILS # (AUTO) 4.2 10^3/uL (1.5-6.6); NEUTROPHILS % (AUTO) 48.7 %; PLT - PLATELET COUNT 359 10^3/uL (130-450); RED BLOOD COUNT 4.21 10^6/uL (4.70-6.10); RED CELL DISTRIBUTION WIDTH 14.5 % (12.0-15.0); WHITE BLOOD COUNT 8.6 x10^3/uL (4.8-10.8)
[2021-06-09 06:42] LABS: CALCIUM 9.3 mg/dL (8.5-10.3); POTASSIUM 3.9 mmol/L (3.5-5.0)
[2021-06-09] MEDS: polyethylene glycoL 3350 17 GM PACKET PO SCH (08:59)
[2021-06-09] MEDS: DOCUSATE SODIUM 250 MG CAPSULE PO SCH (09:00)
[2021-06-09] MEDS: ASPIRIN EC 81 MG TABLET PO SCH (09:00)
[2021-06-09] MEDS: LORATADINE 10 MG TABLET PO SCH (09:00)
[2021-06-09] MEDS: amLODIPine 5 MG TABLET PO SCH (09:00)
[2021-06-09] MEDS: SENNA 8.6 MG TABLET PO SCH (09:00)
[2021-06-09] MEDS: PRENATAL VITAMIN TABLET PO SCH (09:00)
[2021-06-09] MEDS: METOPROLOL SUCCINATE 25 MG TABLET PO SCH (09:00)
[2021-06-09] MEDS: ACETAMINOPHEN 325 MG TABLET PO PRN ×3 (09:00→18:37)
--- NOTE | 2021-06-09 13:47 | PROVIDER PROGRESS NOTE ---
Subjective - Prog Note Date Prog Note Date: 06/09/21 - Subjective Subjective: He feels like he is getting stronger each day. Has no chest pain. Current Medications - Current Medications Current Medications: Active Medications Acetaminophen (Acetaminophen 325 Mg Tablet) 650 mg PO Q4HR PRN PRN Reason: Pain 1 to 4 Last Admin: 06/09/21 09:00 Dose: 650 mg Amlodipine Besylate (Amlodipine 5 Mg Tablet) 5 mg PO DAILY [facility] Last Admin: 06/09/21 09:00 Dose: 5 mg Aspirin (Aspirin Ec 81 Mg Tablet) 81 mg PO DAILY [facility] Last Admin: 06/09/21 09:00 Dose: 81 mg Atorvastatin Calcium (Atorvastatin 40 Mg Tablet) 40 mg PO QPM [facility] Last Admin: 06/08/21 20:15 Dose: 40 mg Diphenhydramine HCl (Diphenhydramine 25 Mg Capsule) 25 mg PO Q4HR PRN PRN Reason: Allergy Symptoms Last Admin: 06/07/21 21:46 Dose: 25 mg Docusate Sodium (Docusate Sodium 250 Mg Capsule) 250 - 500 mg PO DAILY [facility] Last Admin: 06/09/21 09:00 Dose: Not Given Hydralazine HCl (Hydralazine Inj 20 Mg/Ml Vial) 10 mg IVP Q6H PRN PRN Reason: PER PHYSICIAN ORDER Last Admin: 06/05/21 16:43 Dose: 10 mg Loratadine (Loratadine 10 Mg Tablet) 10 mg PO DAILY [facility] Last Admin: 06/09/21 09:00 Dose: 10 mg Metoprolol Succinate (Metoprolol Succinate 25 Mg Tablet) 25 mg PO DAILY [facility] Last Admin: 06/09/21 09:00 Dose: 25 mg Ondansetron HCl (Ondansetron 4 Mg/2 Ml Vial) 4 mg IVP Q6HR PRN PRN Reason: Nausea / Vomiting Polyethylene Glycol (Polyethylene Glycol 3350 17 Gm Packet) 17 gm PO DAILY [facility] Last Admin: 06/09/21 08:59 Dose: 17 gm Multivit/Folic Acid/Iron ( Vitamin Tablet) 1 tab PO DAILY [facility] Last Admin: 06/09/21 09:00 Dose: 1 tab Senna (Senna 8.6 Mg Tablet) 8.6 - 17.2 mg PO DAILY [facility] Last Admin: 06/09/21 09:00 Dose: 8.6 mg Sodium Chloride (Sodium Chloride Flush 0.9% 10 Ml Syringe) 10 ml IVP PRN PRN PRN Reason: NEEDED PER PROVIDER ORDERS Sodium Chloride (Sodium Chloride Flush 0.9% 10 Ml Syringe) 10 ml IVP 0100,0900,1700 [facility] Last Admin: 06/09/21 03:15 Dose: 10 ml Trazodone HCl (Trazodone 50 Mg Tablet) 50 mg PO QPM [facility] Last Admin: 06/08/21 20:15 Dose: 50 mg Fexofenadine HCl 180 mg PO DAILY PRN 06/01/21 hydrOXYzine HCL [Hydroxyzine HCl] 10 mg PO BID PRN 06/01/21 Objective - Vital Signs/Intake & Output Reviewed Vital Signs: Yes Vital Signs: Vital Signs x48h Temp Pulse Pulse Resp BP BP Pulse Ox 06/09/21 12:09 36.4 C L 70 18 100/63 100 06/09/21 08:34 36.3 C L 79 19 162/89 H 98 Intake & Output: Intake & Output 06/06/21 06/07/21 06/08/21 06/09/21 23:59 23:59 23:59 23:59 Intake Total 4494 536 9618 870 Output Total 0 800 275 170 Balance 1440 -210 780 700 - Objective General Appearance: positive: No acute distress, Alert Eyes Bilateral: positive: Normal inspection, Conjunctivae nml ENT: positive: ENT inspection nml Neck: positive: Nml inspection Respiratory: positive: No respiratory distress. negative: Wheezes, Rales Cardiovascular: positive: Regular rate & rhythm. negative: Tachycardia Skin: positive: Warm, Dry Extremities: positive: No pedal edema Neurologic/Psychiatric: positive: Sensation nml, Weakness (4 out of 5 motor s trength in left lower extremity.). negative: Disoriented to person, Disoriented to place - Lab Results Fish Bones: 06/09/21 06:21 06/09/21 06:21 Other Labs: Lab Results x24hrs 06/09/21 06/09/21 Range/Units 06:21 06:21 WBC 8.6 (4.8-10.8) x10^3/uL RBC 4.21 L (4.70-6.10) 10^6/uL Hgb 12.2 L (14.0-18.0) g/dL Hct 38.1 L (42.0-52.0) % MCV 90.5 (80.0-94.0) fL MCH 29.0 (27.0-31.0) pg MCHC 32.0 (32.0-36.0) g/dL RDW 14.5 (12.0-15.0) % Plt Count 359 (130-450) 10^3/uL MPV 10.0 (7.4-11.4) fL Neut # (Auto) 4.2 (1.5-6.6) 10^3/uL Lymph # (Auto) 2.4 (1.5-3.5) 10^3/uL [place] # (Auto) 0.7 (0.0-1.0) 10^3/uL Eos # (Auto) 1.2 H (0.0-0.7) 10^3/uL Baso # (Auto) 0.1 (0.0-0.1) 10^3/uL Absolute Nucleated RBC 0.00 x10^3/uL Nucleated RBC % 0.0 /100WBC Sodium 139 (135-145) mmol/L Potassium 3.9 (3.5-5.0) mmol/L Chloride 103 (101-111) mmol/L Carbon Dioxide 28 (21-32) mmol/L Anion Gap 8.0 (6-13) BUN 36 H (6-20) mg/dL Creatinine 1.0 (0.6-1.2) mg/dL Estimated GFR (MDRD) 75 L (>89) Glucose 98 (70-100) mg/dL Calcium 9.3 (8.5-10.3) mg/dL Assessment/Plan - Problem List (1) Cerebrovascular accident (CVA) Impression: He continues to have left lower extremity weakness. MRI confirmed 2 small infarcts. He is on aspirin and Lipitor. Has been no evidence of atrial fibrillation. The plan is to discharge him to SNF once he is accepted at a facility. Continue with PT and OT. (2) Abnormal stress test Impression: Myocardial perfusion imaging revealed a possible fixed defect in the anteroseptal wall although this could also be artifact. The concerning part of the myocardial perfusion imaging was the fact that his EF decreased to 41% with stress. I spoke with Dr. Zamorano of cardiology yesterday who recommended obtaining a repeat echocardiogram to assess the LV function. If there are wall motion abnormalities or reduced EF then he may benefit from cardiac evaluation on a more urgent basis. His repeat echocardiogram showed preserved ejection fraction without wall motion abnormalities. I spoke with cardiology today and they recommend outpatient follow-up. We will continue beta-jessee, statin, aspirin. (3) Hypertension Impression: His blood pressure is improved today on amlodipine and metoprolol. Continue his current regimen. (4) Nonsustained ventricular tachycardia Impression: He has had no further episodes of nonsustained V. tach. Continue metoprolol.
[2021-06-09] MEDS: ATORVASTATIN 40 MG TABLET PO SCH (21:11)
[2021-06-09] MEDS: traZODone 50 MG TABLET PO SCH (21:11)
[2021-06-10] MEDS: diphenhydrAMINE 25 MG CAPSULE PO PRN (00:19)
[2021-06-10] MEDS: SODIUM CHLORIDE FLUSH 0.9% 10 ML SYRINGE IVP SCH ×2 (00:19→08:21)
[2021-06-10] MEDS: hydrALAZINE INJ 20 MG/ML VIAL IVP PRN (00:26)
[2021-06-10 06:25] LABS: BASOPHILS # (AUTO) 0.1 10^3/uL (0.0-0.1); BASOPHILS % (AUTO) 1.4 %; EOSINOPHILS # (AUTO) 1.4 10^3/uL (0.0-0.7); EOSINOPHILS % (AUTO) 15.5 %; HCT - HEMATOCRIT 37.3 % (42.0-52.0); HGB - HEMOGLOBIN 12.3 g/dL (14.0-18.0); LYMPHOCYTES # (AUTO) 2.3 10^3/uL (1.5-3.5); LYMPHOCYTES % (AUTO) 26.4 %; MEAN CORPUSCULAR HEMOGLOBIN 29.5 pg (27.0-31.0); MEAN CORPUSCULAR VOLUME 89.4 fL (80.0-94.0); MEAN PLATELET VOLUME 9.7 fL (7.4-11.4); MONOCYTES # (AUTO) 0.7 10^3/uL (0.0-1.0); MONOCYTES % (AUTO) 7.5 %; NEUTROPHILS # (AUTO) 4.4 10^3/uL (1.5-6.6); PLT - PLATELET COUNT 356 10^3/uL (130-450); RED BLOOD COUNT 4.17 10^6/uL (4.70-6.10); RED CELL DISTRIBUTION WIDTH 14.3 % (12.0-15.0); WHITE BLOOD COUNT 8.9 x10^3/uL (4.8-10.8)
[2021-06-10 06:35] LABS: CALCIUM 9.3 mg/dL (8.5-10.3); CREATININE 0.8 mg/dL (0.6-1.2); POTASSIUM 3.9 mmol/L (3.5-5.0)
[2021-06-10] MEDS: polyethylene glycoL 3350 17 GM PACKET PO SCH (08:07)
[2021-06-10] MEDS: SENNA 8.6 MG TABLET PO SCH ×2 (08:08→08:18)
[2021-06-10] MEDS: amLODIPine 5 MG TABLET PO SCH (08:08)
[2021-06-10] MEDS: ASPIRIN EC 81 MG TABLET PO SCH (08:09)
[2021-06-10] MEDS: LORATADINE 10 MG TABLET PO SCH (08:09)
[2021-06-10] MEDS: METOPROLOL SUCCINATE 25 MG TABLET PO SCH (08:10)
[2021-06-10] MEDS: PRENATAL VITAMIN TABLET PO SCH (08:11)
[2021-06-10] MEDS: DOCUSATE SODIUM 250 MG CAPSULE PO SCH (08:16)
[2021-06-10 08:20] LABS: PLATELET ESTIMATE, MANUAL NORMAL (130-450,000) (NORMAL); PLATELET MORPHOLOGY NORMAL APPEARANCE (NORMAL); RBC MORPHOLOGY (MULTIPLE) NORMAL APPEARANCE (NORMAL); WBC MORPHOLOGY (MULTIPLE) NORMAL APPEARANCE (NORMAL)
[2021-06-10 08:21] LABS: DIFFERENTIAL COMMENT MANUAL=AUTO DIFF
--- NOTE | 2021-06-10 11:43 | Discharge Plan ---
Discharge Plan Problem Reviewed?: Yes Disposition: Home Health Service Condition: Stable Prescriptions: Aspirin EC [Ecotrin] 81 mg PO DAILY #30 tablet Atorvastatin [Lipitor] 40 mg PO QPM #30 tablet amLODIPine [Norvasc] 5 mg PO DAILY #30 tablet Metoprolol Succinate [Toprol Xl] 25 mg PO DAILY #30 tablet Diet: Cardiac Activity Restrictions: Activity as Tolerated Assistance Devices: [facility] Concerns: You are seen in the hospital because of a stroke. MRI confirmed he had 2 small strokes which likely caused the worsening weakness of your left leg. You were seen by physical therapy and initially was recommended that you go to rehab but you have progressed quite well and so we will be sending you home with home health. During this hospitalization, you had occasional beats of an abnormal arrhythmia called ventricular tachycardia. We did a stress test which showed that your heart function was little weaker with stress but at rest this is normal. I spok e with the it support specialist who recommended you follow-up with them on an outpatient basis. Dr. Savage of the [facility] would like to see you in follow-up. Plan of Treatment: Please begin to take aspirin 81 mg daily and Lipitor 40 mg in the evening to help reduce your risk of stroke. Please begin to take Toprol 25 mg daily and amlodipine 5 mg daily. This can help control your blood pressure and prevent further episodes of the tachycardia. Please follow-up with cardiology and I have provided you with the number below for their office. Assessment: The patient expressed understanding of the treatment plan. Additional Instructions or Follow Up instructions: Please follow-up with your primary care physician in 1 to 2 weeks. Please also follow-up with cardiology. You can contact their office at either [phone] or [phone]. Dr. Savage is the leaded glass installer who would like to see you in the office. Follow-Up Care: Home Health - PT, Home Health - OT No Smoking: If you smoke, Please STOP! Call for help. Follow-up with: Jermaine Ryan MD [Primary Care Provider] -
--- NOTE | 2021-06-10 11:47 | DISCHARGE SUMMARY ---
"Discharge Summary Admit Date: 06/01/21 Discharge Date: 06/10/21 Discharging Provider: Murray Shaw Primary Care Provider: Jermaine Ryan Code Status: Attempt Resuscitation Condition at Discharge: Stable Discharge Disposition: Home Health Service - DIAGNOSES Admission Diagnoses: CVA Hypertension Discharge Diagnoses with Status of Each Condition: Cerebrovascular accident - stable. Abnormal stress test - stable. Hypertension - stable. Nonsustained reticular tachycardia - resolved. History of colon cancer - stable. History of neck cancer - stable. - HPI History of Present Illness: H&P per Dr. 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 He presented to the ED today with left lower extremity weakness and a fall. Symptoms started last night when he tried to get up to go to the bathroom and fell. He then tried using his walker and with this was able to go to the bathroom and returned to bed. This morning he woke up to go to the bathroom again and fell. At that point he called EMS and was brought to the ED. Work-up in the ED included CT angiogram of the head and neck and subsequently brain MRI. This showed a tiny acute infarct in the right thalamus and posterior limb of the internal capsule. Global cerebral volume loss and chronic vascular ischemic changes both moderate to severe and advanced for age. Remote right frontal and left frontal infarcts. As a result of this findings the patient was presented for admission for further treatment to include physical therapy. At bedside he was resting comfortably. He reported mild right frontal headache. He denied double vision, blurry vision or difficulties speaking. He also denied chest pain, dyspnea, abdominal pain, nausea, vomiting, fever or chills. He uses a walker at home most of the time. - CONSULTS | PROCEDURES Consultations: PT, OT, Social Work. - HOSPITAL COURSE Hospital Course: Patient was admitted for stroke given he had new left-sided weakness. He was started on Lipitor and atorvastatin. MRI showed a tiny acute infarct in the right thalamus and posterior limb of the internal capsule. The patient was evaluated by PT and OT and SNF was recommended. It was noted during the hospitalization that he had multiple brief episodes of nonsustained ventricular tachycardia. Troponins were checked and were within normal limits. A preliminary echocardiogram showed a preserved ejection fraction but there was concern for akinesis of the apex. We then obtained a nuclear stress test and he was started on metoprolol. Myocardial perfusion imaging revealed a small subtle fixed perfusion defect involving the anteroseptal wall which could represent artifact or prior infarct. It was also noted that he had abnormal left ventricular function during stress phase of the study as his ejection fraction decreased to 41%. This finding was discussed with cardiology who recommended obtaining an official echocardiogram. An echocardiogram was then obtained which showed a preserved ejection fraction with no wall motion abnormalities. This was again discussed with cardiology and they recommended outpatient follow-up for further work-up which may include a cardiac CT. This was discussed with the patient who was in agreement with the plan. The plan at this time was still to have the patient go [facility] a [facility] but it was difficult to finding him facility to go to. He continued to work with physical therapy and he made significant progress. It was then felt that he could be discharged home with home health PT and OT and that he will have an increase in the frequency of his caregivers. The patient was discharged on aspirin, Lipitor, Toprol, amlodipine. He was given the contact information to follow-up with cardiology at the [facility]. - ALLERGIES Allergies/Adverse Reactions: Allergies Allergy/AdvReac Type Severity Reaction Status Date / Time No Known Drug Allergies Allergy Verified 06/01/21 08:18 - MEDICATIONS Home Medications: Ambulatory Orders Medication Instructions Recorded Confirmed Fexofenadine HCl 180 mg PO DAILY PRN 06/01/21 06/01/21 hydrOXYzine HCL [Hydroxyzine HCl] 10 mg PO BID PRN 06/01/21 06/01/21 Aspirin EC [Ecotrin] 81 mg PO DAILY #30 tablet 06/10/21 Atorvastatin [Lipitor] 40 mg PO QPM #30 tablet 06/10/21 Metoprolol Succinate [Toprol Xl] 25 mg PO DAILY #30 tablet 06/10/21 amLODIPine [Norvasc] 5 mg PO DAILY #30 tablet 06/10/21 - PHYSICAL EXAM AT DISCHARGE General Appearance: positive: No acute distress, Alert Eyes Bilateral: positive: Normal inspection, Conjunctivae nml ENT: positive: ENT inspection nml Respiratory: positive: No respiratory distress. negative: Wheezes, Rales Cardiovascular: positive: Regular rate & rhythm, No murmur. negative: Tachycardia Abdomen: positive: Non-tender, No distention. negative: Tenderness Skin: positive: Warm, Dry Extremities: positive: No pedal edema Neurologic/Psychiatric: positive: Sensation nml, Weakness (He has about 4 out of 5 motor strength in the left lower extremity. 5 out of 5 motor strength in all of the other extremities.). negative: Disoriented to person, Disoriented to place, Disoriented to time Physical Exam Other/Comments: Vital Signs - 24 hr 06/09/21 06/10/21 06/10/21 20:56 00:26 00:35 Temperature 36.5 C Heart Rate [ 64 Brachial] Heart Rate [ 74 Radial] Respiratory 16 Rate Blood Pressure 194/79 H Blood Pressure 164/76 H [Left Brachial artery] Blood Pressure 161/74 H [Right Brachial artery] O2 Saturation 97 06/10/21 06/10/21 06/10/21 00:40 00:45 00:56 Temperature 36.5 C Heart Rate [ 98 Brachial] Heart Rate [ Radial] Respiratory 17 Rate Blood Pressure 116/54 L Blood Pressure 114/56 L 116/54 L [Left Brachial artery] Blood Pressure [Right Brachial artery] O2 Saturation 97 06/10/21 06/10/21 06/10/21 01:00 01:15 01:30 Temperature Heart Rate [ Brachial] Heart Rate [ Radial] Respiratory Rate Blood Pressure Blood Pressure 126/60 129/61 135/75 H [Left Brachial artery] Blood Pressure [Right Brachial artery] O2 Saturation 06/10/21 06/10/21 06/10/21 05:58 08:01 12:21 Temperature 36.3 C L 36.6 C 36.3 C L Heart Rate [ 71 67 81 Brachial] Heart Rate [ Radial] Respiratory 17 16 16 Rate Blood Pressure Blood Pressure 146/59 H [Left Brachial artery] Blood Pressure 138/80 H 153/64 H [Right Brachial artery] O2 Saturation 99 98 100 Oxygen O2 Source Room air - LABS Result Diagrams: 06/10/21 06:18 06/10/21 06:18 - FOLLOW UP Follow Up: He was asked to follow-up with his primary care physician in 1 to 2 weeks and to follow-up with cardiology at the [facility] for further work-up of the stress test. - TIME SPENT Time Spent in Discharge (Minutes): 34"
[2021-06-10 12:24] VITALS: BP 153/64
== END 2021-06-10 15:15 | disposition home health service (06) | DRG 65 ==
LOC: EDUNIT# → ED 08:04 → MS2 13:20
PROVIDERS: ADMIT Internal Medicine; ATTEND Internal Medicine
DX: I63.9 Cerebral infarction, unspecified (principal); G81.94 Hemiplegia, unspecified affecting left nondominant side; I47.2 Ventricular tachycardia; I10 Essential (primary) hypertension; J44.9 Chronic obstructive pulmonary disease, unspecified; F10.11 Alcohol abuse, in remission; R29.702 NIHSS score 2; R94.39 Abnormal result of other cardiovascular function study; Z20.822 Contact with and (suspected) exposure to COVID-19; Z79.82 Long term (current) use of aspirin; Z79.899 Other long term (current) drug therapy; Z80.3 Family history of malignant neoplasm of breast; Z82.49 Family history of ischemic heart disease and other diseases of the circulatory system; Z85.038 Personal history of other malignant neoplasm of large intestine; Z85.819 Personal history of malignant neoplasm of unspecified site of lip, oral cavity, and pharynx; Z87.891 Personal history of nicotine dependence; Z92.3 Personal history of irradiation
CPT/HCPCS: 0202U; 36415; 70496; 70498; 70551; 78452; 80048; 80061; 83036; 83735; 84484; 85025; 85610; 92526; 92610; 93005; 93017; 93306; 96374; 97110; 97112; 97116; 97162; 97165; 97530; 99284; 99285; A9270; A9500; J2060; J2785; Q9967; 83721